=== PATIENT | female | born 1960 | race Caucasian/White ===

== ENCOUNTER 2016-12-03 16:08 | Emergency (ER) | payer OTHER ==
[~2016-12-03] VITALS: Ht 157.5 cm; Wt 80.0 kg
[~2016-12-03 16:08] MED LIST: AGG PO; ALBUAER19 INH; BUSP15TA70 PO; CTP/1 PO; ESCI1TAB10 PO; MECL1TAB42 PO; VERA240C2 PO
[2016-12-03 16:12] VITALS: TEMP 36.9; Ht 157.5 cm; Wt 80.0 kg
[2016-12-03] MEDS ORDERED: TOPI100T45 PO (16:17)
--- NOTE | 2016-12-03 17:05 | DIAGNOSTIC IMAGING REPORT ---
CT OF THE HEAD WITHOUT CONTRAST CLINICAL HISTORY: Fall. Head injury. COMPARISON STUDY: Head CT March 20, 2016 and MRI the brain March 21, 2016 TECHNIQUE: Helical axial images of the head were obtained without IV contrast. Automated exposure control was utilized for the study. FINDINGS: No acute intracranial hemorrhage, midline shift or mass effect is present. Ventricular system is normal. The basilar cisterns are patent. There are no extra-axial collections. Farris-white differentiation is maintained. There is no calvarial fracture. Visualized portions of the sinuses and mastoid air cells are clear. IMPRESSION: 1. No acute intracranial findings. 2. No calvarial fracture. Electronically signed by: Maksim Delcid M.D. 12/03/2016 5:03 PM Dictated Date/Time: 12/03/2016 5:01 PM
--- NOTE | 2016-12-03 17:07 | DIAGNOSTIC IMAGING REPORT ---
CT SCAN OF THE CERVICAL SPINE CLINICAL HISTORY: Fall. Trauma. COMPARISON STUDY: CT angiogram the neck dated 11/22/2015. TECHNIQUE: CT scan of the cervical spine is performed from the skull base to the upper thoracic spine. Images are reviewed in the axial, sagittal, and coronal planes. IV contrast was not administered for this examination. CT DOSE: 1077.21 mGy.cm FINDINGS: Skeletal structures: The skeletal structures are osteopenic. There is no evidence of fracture or subluxation involving the cervical spine. Vertebral body height and alignment are maintained. There is straightening of cervical lordosis. There is incomplete bony fusion of the posterior ring of C1, likely on a congenital basis. The odontoid process and lateral masses are intact. The atlantoaxial articulation is preserved. The spinous processes appear intact. Minimal anterior wedging of T1 is unchanged from previous. Intervertebral discs: The disc spaces are well maintained. Central canal: Widely patent. Soft tissues: The prevertebral and paraspinous soft tissues are within normal limits. Calvarium: The visualized calvarium at the skull base appears intact. Brain parenchyma: Partially visualized brain parenchyma the skull base is within normal limits. Sinuses and mastoids: Trace mucosal thickening is seen in the maxillary antra. The mastoid air cells are well pneumatized. Lung apices: Clear as visualized. IMPRESSION: There is no evidence of fracture or subluxation involving the cervical spine. Electronically signed by: Stuart Castellanos M.D. 12/03/2016 5:05 PM Dictated Date/Time: 12/03/2016 5:02 PM
--- NOTE | 2016-12-03 17:16 | DIAGNOSTIC IMAGING REPORT ---
PELVIS 1 OR 2 VIEW ROUTINE CLINICAL HISTORY: Fall. Right hip pain. COMPARISON STUDY: No previous studies for comparison. FINDINGS: The sacroiliac joints and symphysis pubis are intact. There is no acute fracture within the pelvis or hips. There is mixed lucency and sclerosis within both femoral heads, left greater than right. There may be left femoral head collapse. IMPRESSION: 1. No acute fracture within the pelvis or hips. 2. Mixed lucency and sclerosis within the bilateral femoral heads, left greater than right. The findings raise the possibility of avascular necrosis with collapse on the left. Electronically signed by: Maksim Delcid M.D. 12/03/2016 5:15 PM Dictated Date/Time: 12/03/2016 5:14 PM
--- NOTE | 2016-12-03 17:17 | DIAGNOSTIC IMAGING REPORT ---
RIGHT HIP UNILATERAL 2 VIEWS CLINICAL HISTORY: Right hip pain following fall. COMPARISON: None FINDINGS: Alignment of the right hip is anatomic. There is no acute fracture. Mixed lucency and sclerosis within the femoral head is better depicted on the pelvis radiograph. IMPRESSION: 1. No acute fracture or dislocation of the right hip. 2. Possible avascular necrosis of the right femoral head. Electronically signed by: Maksim Delcid M.D. 12/03/2016 5:15 PM Dictated Date/Time: 12/03/2016 5:15 PM
--- NOTE | 2016-12-03 17:18 | DIAGNOSTIC IMAGING REPORT ---
L-SPINE MIN 4 VIEWS ROUTINE CLINICAL HISTORY: Back pain following fall. COMPARISON: None FINDINGS: Alignment of the lumbar spine is anatomic. Vertebral body heights are maintained. There is no acute fracture or suspicious lesion. Sacroiliac joints are intact. There is mild multilevel degenerative disc disease and facet arthrosis within the lumbar spine. IMPRESSION: 1. No acute lumbar spine fracture or subluxation identified. 2. Mild multilevel degenerative disc disease and facet arthrosis of the lumbar spine. Electronically signed by: Maksim Delcid M.D. 12/03/2016 5:17 PM Dictated Date/Time: 12/03/2016 5:16 PM
[2016-12-03 17:55] VITALS: BP 138/79; PULSE 72; O2SAT 95
--- NOTE | 2016-12-03 20:18 | EMERGENCY ROOM VISIT NOTE ---
History Report prepared by Apoorva: Izabella Franco Under the Supervision of: Dr. Stephon Laureano M.D. 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 The patient notes that she slipped on ice while bringing her dog inside and fell on her backside, hitting the back of her head. She did not lose consciousness. Since then she has had some pain to the back of her head and some right hip soreness. About 2 hours ago, she became lightheaded and nauseated. She took an antiemetic which improved her nausea some. She has been able to walk normally. She ate lunch prior to the fall. Currently, she has some pressure in the front of her head, but she notes that she has had a headache since waking up and does not think it is from hitting her head. Denies vomiting, unilateral weakness/ numbness, or other complaints. 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 A total of 10 systems reviewed and were otherwise negative. Past Medical & Surgical Medical Problems: (1) Asthma (2) Bronchitis (3) History of blood clots (4) Hypertension (5) Pneumonia (6) possible cva (7) TIA or cervicle radiculopathy Surgical Problems: (1) H/O: hysterectomy Family History Cancer Diabetes mellitus Heart disease Hypertension Social History Smoking Status: Never Smoker Alcohol Use: none Drug Use: none Marital Status: Housing Status: lives with family Occupation Status: employed Current/Historical Medications Scheduled Buspirone Hcl (Buspar), 15 MG PO BID Cyanocobalamin (Vitamin B-12), 1,000 MCG PO DAILY Escitalopram Oxalate (Lexapro), 20 MG PO DAILY Topiramate (Topamax), 100 MG PO TID Scheduled PRN Albuterol (Ventolin Hfa), 2 PUFFS INH QID PRN for SOB/Wheezing Meclizine HCl (Meclizine HCl), 25 MG PO TID PRN for Dizziness or Vertigo Naproxen (Naproxen), 500 MG PO BID PRN for Pain Naratriptan Hcl (Amerge), 2.5 MG PO UD PRN for Migraine Omeprazole (Prilosec), 20 MG PO BID PRN for Acid Reflux Ondansetron Hcl (Zofran), 4 MG PO Q8H PRN for Nausea Tizanidine Hcl (Zanaflex), 2 MG PO BID PRN for Migraine Allergies Coded Allergies: Sulfa Antibiotics (Verified Allergy, Unknown, Unknown, 11/22/15) Physical Exam Vital Signs Date Time Temp Pulse Resp B/P Pulse Ox O2 Delivery O2 Flow Rate FiO2 12/03/16 17:55 72 19 138/79 95 12/03/16 16:12 36.9 81 18 141/91 96 Room Air Physical Exam Constitutional: Vital signs reviewed. Eyes: Pupils are equal round reactive to light. Conjunctiva are noninjected. ENT: Pharynx is clear without erythema or exudate. Mucous membranes are moist. Mild tenderness of the cervical spine without step off or deformity. Neck supple without meningeal signs. Respiratory: Clear to auscultation bilaterally. Breath sounds are equal bilaterally. Cardiovascular: Regular rate and rhythm. No rubs or gallops. GI: Soft, nondistended and nontender. Bowel sounds are present. Musculoskeletal: No peripheral edema. mild tenderness of the lumbosacral spine without step off or deformity. Mild tenderness of the right hip without deformity. Integumentary: No cyanosis. Neurological: The patient is awake and alert. Cranial nerves II-XII are intact. Motor is 5 out of 5 all extremities. Sensation is intact to light touch all extremities. Normal speech. No pronator drift. Psychiatric: Normal affect. Medical Decision & Procedures ER Provider Diagnostic Interpretation: X-ray results as stated below per interpretation by me and the radiologist. Other radiology results as stated below per my review and the radiologist's interpretation: PELVIS 1 OR 2 VIEW ROUTINE CLINICAL HISTORY: Fall. Right hip pain. COMPARISON STUDY: No previous studies for comparison. FINDINGS: The sacroiliac joints and symphysis pubis are intact. There is no acute fracture within the pelvis or hips. There is mixed lucency and sclerosis within both femoral heads, left greater than right. There may be left femoral head collapse. IMPRESSION: 1. No acute fracture within the pelvis or hips. 2. Mixed lucency and sclerosis within the bilateral femoral heads, left greater than right. The findings raise the possibility of avascular necrosis with collapse on the left. Electronically signed by: Maksim Delcid M.D. 12/03/2016 5:15 PM Dictated Date/Time: 12/03/2016 5:14 PM L-SPINE MIN 4 VIEWS ROUTINE CLINICAL HISTORY: Back pain following fall. COMPARISON: None FINDINGS: Alignment of the lumbar spine is anatomic. Vertebral body heights are maintained. There is no acute fracture or suspicious lesion. Sacroiliac joints are intact. There is mild multilevel degenerative disc disease and facet arthrosis within the lumbar spine. IMPRESSION: 1. No acute lumbar spine fracture or subluxation identified. 2. Mild multilevel degenerative disc disease and facet arthrosis of the lumbar spine. Electronically signed by: Maksim Delcid M.D. 12/03/2016 5:17 PM Dictated Date/Time: 12/03/2016 5:16 PM RIGHT HIP UNILATERAL 2 VIEWS CLINICAL HISTORY: Right hip pain following fall. COMPARISON: None FINDINGS: Alignment of the right hip is anatomic. There is no acute fracture. Mixed lucency and sclerosis within the femoral head is better depicted on the pelvis radiograph. IMPRESSION: 1. No acute fracture or dislocation of the right hip. 2. Possible avascular necrosis of the right femoral head. Electronically signed by: Maksim Delcid M.D. 12/03/2016 5:15 PM Dictated Date/Time: 12/03/2016 5:[address] OF THE HEAD WITHOUT CONTRAST CLINICAL HISTORY: Fall. Head injury. COMPARISON STUDY: Head CT March 20, 2016 and MRI the brain March 21, 2016 TECHNIQUE: Helical axial images of the head were obtained without IV contrast. Automated exposure control was utilized for the study. FINDINGS: No acute intracranial hemorrhage, midline shift or mass effect is present. Ventricular system is normal. The basilar cisterns are patent. There are no extra-axial collections. Farris-white differentiation is maintained. There is no calvarial fracture. Visualized portions of the sinuses and mastoid air cells are clear. IMPRESSION: 1. No acute intracranial findings. 2. No calvarial fracture. Electronically signed by: Maksim Delcid M.D. 12/03/2016 5:03 PM Dictated Date/Time: 12/03/2016 5:[address] SCAN OF THE CERVICAL SPINE CLINICAL HISTORY: Fall. Trauma. COMPARISON STUDY: CT angiogram the neck dated 11/22/2015. TECHNIQUE: CT scan of the cervical spine is performed from the skull base to the upper thoracic spine. Images are reviewed in the axial, sagittal, and coronal planes. IV contrast was not administered for this examination. CT DOSE: 1077.21 mGy.cm FINDINGS: Skeletal structures: The skeletal structures are osteopenic. There is no evidence of fracture or subluxation involving the cervical spine. Vertebral body height and alignment are maintained. There is straightening of cervical lordosis. There is incomplete bony fusion of the posterior ring of C1, likely on a congenital basis. The odontoid process and lateral masses are intact. The atlantoaxial articulation is preserved. The spinous processes appear intact. Minimal anterior wedging of T1 is unchanged from previous. Intervertebral discs: The disc spaces are well maintained. Central canal: Widely patent. Soft tissues: The prevertebral and paraspinous soft tissues are within normal limits. Calvarium: The visualized calvarium at the skull base appears intact. Brain parenchyma: Partially visualized brain parenchyma the skull base is within normal limits. Sinuses and mastoids: Trace mucosal thickening is seen in the maxillary antra. The mastoid air cells are well pneumatized. Lung apices: Clear as visualized. IMPRESSION: There is no evidence of fracture or subluxation involving the cervical spine. Electronically signed by: Stuart Castellanos M.D. 12/03/2016 5:05 PM Dictated Date/Time: 12/03/2016 5:02 PM ED Course 1620: The patient was evaluated in room D6. A complete history and physical exam was performed. 1736: I reassessed the patient and discussed test results with her, including the pelvis x-ray. She does not have any pain in her left hip and will follow up with her doctor regarding those findings. She will be discharged home. Medical Decision This is a 56-year-old female who presents status post injuries after a fall. Differential diagnosis includes intracranial hemorrhage, contrecoup injury, concussion, contusion, hip fracture. I did perform a limited focused review of portions of the patient's old chart on the electronic medical record. She was admitted for a complex migraine in March of last year because he had a facial droop and slurred speech. MRI of the brain was normal. I did evaluate the patient as noted above. The patient is presenting with injuries after a mechanical fall. She complains of dizziness and a headache. She also has neck pain, back pain and right hip and lower back pain. I did order and personally review the patient's x-rays as described above. There are no acute fractures. She does have degenerative changes to her lower back. There are some changes consistent with avascular necrosis of the bilateral hips , left greater than right. The patient does not have any pain to her left hip. I did recommend that she talk to her doctor about these findings for further evaluation. I did order a CT of the head and cervical spine. I did review the images myself as well as the radiology report as described above. There is no evidence of bleed or cervical injury. I did discuss the test results with the patient. I did review head injury precautions with her. She was discharged in good condition. Impression Primary Impression: Acute head injury Additional Impressions: Fall Back pain Right hip pain Scribe Attestation The scribe's documentation has been prepared under my direct and personally reviewed by me in its entirety. I confirm that the note above accurately reflects all work, treatment, procedures, and medical decision making performed by me. Departure Information Dispostion Home / Self-Care Referrals Betsy Werner C.R.N.P. (PCP) Patient Instructions ED Head Injury Closed, My [facility] Additional Instructions You have been examined and treated today on an emergency basis only. This is not a substitute for, or an effort to provide, complete comprehensive medical care. It is impossible to recognize and treat all injuries or illnesses in a single emergency department visit. It is therefore important that you follow up closely with your physician. Call as soon as possible for an appointment. Return for worsening symptoms or if you develop numbness or weakness in your extremities, vomiting, or any other concerning symptoms. Talk to your doctor about the abnormal findings of your pelvic/hip x-rays. Problem Qualifiers Primary Impression: Acute head injury Encounter type: initial encounter Qualified Codes: S09.90XA - Unspecified injury of head, initial encounter Additional Impressions: Fall Encounter type: initial encounter Qualified Codes: W19.XXXA - Unspecified fall, initial encounter Back pain Back pain location: low back pain Chronicity: acute Back pain laterality: midline Sciatica presence: without sciatica Qualified Codes: M54.5 - Low back pain
[2016-12-03] MEDS ORDERED: NARA2.5T2 PO (22:20)
[2017-05-25] MEDS ORDERED: PRVHFAIN INH (16:44)
[2017-06-18] MEDS ORDERED: ONDA4TAB46 PO (13:05)
[2017-06-18] MEDS ORDERED: OMEP20CA9 PO (16:44)
[2017-06-18] MEDS ORDERED: ANT25 PO (16:44)
== END 2016-12-03 17:57 | disposition home or self-care (01) ==
LOC: C.EDB 16:10 → C.EDD 17:57
DX: S09.90XA Unspecified injury of head, initial encounter (principal); M54.9 Dorsalgia, unspecified; M25.551 Pain in right hip; W19.XXXA Unspecified fall, initial encounter; J45.909 Unspecified asthma, uncomplicated; I10 Essential (primary) hypertension; Z87.01 Personal history of pneumonia (recurrent); Z90.710 Acquired absence of both cervix and uterus

== ENCOUNTER → 2016-12-30 | Outpatient (CLI) | payer OTHER ==
[~2016-12-30] MED LIST changes: -AGG PO; -ALBUAER19 INH; +ANT25 PO; +ASPI81TA28 PO; +ATOR-22 PO; +BSP15 PO; -CTP/1 PO; +CYAN10005 PO; +ELET40TA PO; +LXP/20 PO; -MECL1TAB42 PO; +NAPR500T3 PO; +NARA2.5T2 PO; +NTRGSL/4 SL; +OMEP20CA9 PO; +ONDA4TAB46 PO; +PRVHFAIN INH; +RANI150T3 PO; +TIZA2CAP PO; +TIZA2TAB3 PO; +TOPI100T45 PO; +TPM100 PO; -VERA240C2 PO; +VNTHFA/IN INH
== END | disposition home or self-care (01) ==
LOC: C.MAMM 07:51
PROVIDERS: ATTEND Nurse Practitioner Adult Health
DX: R93.7 Abnormal findings on diagnostic imaging of other parts of musculoskeletal system (principal); M85.89 Other specified disorders of bone density and structure, multiple sites

== ENCOUNTER → 2016-12-31 | Outpatient (CLI) | payer OTHER ==
--- NOTE | 2016-12-31 13:57 | DIAGNOSTIC IMAGING REPORT ---
MRI THE LEFT HIP NO CONTRAST CLINICAL HISTORY: Left hip pain. Possible avascular necrosis. COMPARISON STUDY: AP pelvis dated 12/03/2016 FINDINGS: Incidental note is made of sigmoid diverticulosis. There is no pathologic adenopathy. There are no areas of marrow replacement to indicate metastatic disease. There are serpentine foci of diminished signal within the subcutaneous chondral portion of both femoral heads. The findings are consistent with bilateral avascular necrosis. There is no significant subarticular collapse. Within the contralateral right hip, there is edema within the obturator externus and quadratus femoris muscles.. IMPRESSION: 1. Bilateral avascular necrosis of the femoral heads 2. Edema within the right obturator externus and quadratus femoris muscles, suggestive of muscle strain. Electronically signed by: Ronald Lacy M.D. 12/31/2016 1:56 PM Dictated Date/Time: 12/31/2016 1:48 PM
== END | disposition home or self-care (01) ==
LOC: C.MRIBC 12:50
PROVIDERS: ATTEND Orthopaedic Surgery
DX: M25.552 Pain in left hip (principal); M87.051 Idiopathic aseptic necrosis of right femur; M87.052 Idiopathic aseptic necrosis of left femur; R60.0 Localized edema

== ENCOUNTER → 2017-02-08 | Outpatient (CLI) | payer OTHER ==
[2017-02-08 09:21] LABS: BASO % 0.7 %; BASO ABS # 0.05 K/uL (0-0.2); COMPLETE YES; HEMATOCRIT 41.4 % (37-47); IG% 0.1 %; LYMPH % 30.1 %; LYMPH ABS # 2.22 K/uL (1.2-3.4); MEAN CELL VOLUME 86.4 fL (80-100); MEAN CORPUSCULAR HEMOGLOBIN 28.8 pg (25-34); MEAN CORPUSCULAR HGB CONC 33.3 g/dl (32-36); MEAN PLATELET VOLUME 9.9 fL (7.4-10.4); MONO % 7.3 %; NEUT % 59.8 %; PLATELET COUNT 228 K/uL (130-400); RED BLOOD COUNT 4.79 M/uL (4.2-5.4); WHITE BLOOD COUNT 7.38 K/uL (4.8-10.8)
[2017-02-08 09:28] LABS: ALT/SGPT 18 U/L (12-78); BLOOD UREA NITROGEN 15 mg/dl (7-18); BUN/CREATININE RATIO 16.6 (10-20); CALCIUM 8.7 mg/dl (8.5-10.1); CARBON DIOXIDE 25 mmol/L (21-32); CHLORIDE 113 mmol/L (98-107); CHOLESTEROL 212 mg/dl (0-200); CREATININE 0.88 mg/dl (0.60-1.20); GLUCOSE 86 mg/dl (70-99); POTASSIUM 3.7 mmol/L (3.5-5.1); SODIUM 145 mmol/L (136-145); TRIGLYCERIDES 170 mg/dl (0-150); VERY LOW DENSITY LIPOPROT CALC 34 mg/dl
[2017-02-08 09:31] LABS: ALB/GLOB RATIO 1.2 (0.9-2); ALKALINE PHOSPHATASE 82 U/L (45-117); AST/SGOT 13 U/L (15-37); CHOLESTEROL/HDL RATIO 4.9; HDL CHOLESTEROL 43 mg/dl; LDL CHOLESTEROL CALCULATED 135 mg/dl
== END | disposition home or self-care (01) ==
LOC: C.LAB 07:59
PROVIDERS: ATTEND Nurse Practitioner Adult Health
DX: E78.5 Hyperlipidemia, unspecified (principal); I10 Essential (primary) hypertension; R93.7 Abnormal findings on diagnostic imaging of other parts of musculoskeletal system

== ENCOUNTER 2017-05-25 21:53 | Observation (INO) | payer OTHER ==
[~2017-05-25] VITALS: Ht 160 cm; Wt 78.4 kg
[~2017-05-25 21:53] MED LIST changes: -ANT25 PO; -ASPI81TA28 PO; -ATOR-22 PO; -BSP15 PO; -CYAN10005 PO; -ELET40TA PO; -LXP/20 PO; -NAPR500T3 PO; -NTRGSL/4 SL; -OMEP20CA9 PO; -ONDA4TAB46 PO; -RANI150T3 PO; -TIZA2CAP PO; -TIZA2TAB3 PO; -TPM100 PO; -VNTHFA/IN INH
[2017-05-25] MEDS ORDERED: ASPIRIN 81 MG CHEW PO STA (22:21)
[2017-05-25] MEDS ORDERED: SODIUM CHLORIDE 0.9% 500ML 500 ML IV STA (22:21)
[2017-05-25] MEDS ORDERED: NITROGLYCERIN 0.4 MG SL PER TAB CHARGE SL PRN (22:30)
[2017-05-25 22:43] LABS: BASO % 0.6 %; BASO ABS # 0.05 K/uL (0-0.2); COMPLETE YES; EOS % 3.4 %; HEMATOCRIT 42.4 % (37-47); IG% 0.2 %; LYMPH % 34.7 %; LYMPH ABS # 2.94 K/uL (1.2-3.4); MEAN CORPUSCULAR HEMOGLOBIN 29.5 pg (25-34); MEAN CORPUSCULAR HGB CONC 33.5 g/dl (32-36); MEAN PLATELET VOLUME 10.2 fL (7.4-10.4); MONO % 5.9 %; NEUT % 55.2 %; PLATELET COUNT 214 K/uL (130-400); RED BLOOD COUNT 4.82 M/uL (4.2-5.4); WHITE BLOOD COUNT 8.47 K/uL (4.8-10.8)
[2017-05-25 23:06] LABS: BLOOD UREA NITROGEN 16 mg/dl (7-18); BUN/CREATININE RATIO 14.7 (10-20); CALCIUM 8.6 mg/dl (8.5-10.1); CARBON DIOXIDE 24 mmol/L (21-32); CHLORIDE 113 mmol/L (98-107); GLUCOSE 108 mg/dl (70-99); POTASSIUM 3.8 mmol/L (3.5-5.1); SODIUM 145 mmol/L (136-145)
[2017-05-25 23:11] LABS: CKMB/CK RATIO 1.2 (0-3.0)
[2017-05-26] VITALS (9 sets, daily range): BP systolic 108–156; BP diastolic 76–106; PULSE 61–77; TEMP 36.5–36.8; O2SAT 96–99; Ht 160 cm; Wt 78.4 kg
--- NOTE | 2017-05-26 00:34 | EMERGENCY ROOM VISIT NOTE ---
History Report prepared by Apoorva: An Burns Under the Supervision of: Wilfredo TrippO. First contact with patient: 22:09 Chief Complaint: RESPIRATORY PROBLEMS Stated Complaint: WEAK SPELLS THIS WK, CHEST DISCOMFORT TODAY Nursing Triage Summary: triage note pt reports having a tightness in her chest area, relating this to breathing, with periods of weakness for a few days pt used inhaler approx at 1800 with some relief History of Present Illness The patient is a 56 year old female who presents to the Emergency Room with complaints of persistent chest tightness starting about an hour ago. About a week ago, she started having intermittent generalized weakness. She also had multiple episodes of her complicated migraine. She had right sided facial weakness and eye movements which were consistent with her usual complicated migraine symptoms. Her most recent episode of complicated migraine occurred about 6 hours ago. She currently denies any facial weakness. About an hour ago, the patient was resting when she started having chest tightness. The patient also had some shortness of breath. She used her inhaler without relief. She notes being nauseated as well. The patient currently continues to complain of the chest tightness. She currently denies any weakness or numbness. She denies arm or jaw pain, coughing up blood, vomiting, diarrhea, swelling of calves, or any other complaints. She does not smoke cigarettes. The patient has a history of high cholesterol. She is no longer on hypertension medications. She denies any personal history of myocardial infarction, diabetes, or trouble with aorta. She has a family history of myocardial infarction. Source of History: patient Onset: about an hour ago Position: chest Quality: other (chest tightness) Timing: other (persistent) Modifying Factors (Relieving): other (inhaler without relief) Associated Symptoms: + SOB, + nausea, No vomiting, No diarrhea Review of Systems See HPI for pertinent positives & negatives. A total of 10 systems reviewed and were otherwise negative. Past Medical & Surgical Medical Problems: (1) Asthma (2) Bronchitis (3) History of blood clots (4) Hypertension (5) Pneumonia (6) possible cva (7) TIA or cervicle radiculopathy Surgical Problems: (1) H/O: hysterectomy Family History Cancer Diabetes mellitus Heart disease Hypertension Social History Smoking Status: Never Smoker Alcohol Use: none Drug Use: none Marital Status: Housing Status: lives with family Occupation Status: employed Current/Historical Medications Scheduled Buspirone HCl (Buspirone HCl), 5 MG PO HS Cyanocobalamin (Vitamin B-12), 1,000 MCG PO DAILY Escitalopram Oxalate (Escitalopram Oxalate), 20 MG PO DAILY Tizanidine (Zanaflex), 1 MG PO QAM Tizanidine Hcl (Zanaflex), 2 MG PO HS Topiramate (Topiramate), 100 MG PO BID Scheduled PRN Albuterol (Ventolin Hfa), 2 PUFFS INH QID PRN for SOB/Wheezing Eletriptan Hydrobromide (Relpax), 40 MG PO UD PRN for Migraine Meclizine HCl (Meclizine HCl), 25 MG PO TID PRN for Dizziness or Vertigo Naproxen (Naproxen), 500 MG PO BID PRN for Pain Omeprazole (Prilosec), 20 MG PO BID PRN for Acid Reflux Ondansetron Hcl (Zofran), 4 MG PO Q8H PRN for Nausea Allergies Coded Allergies: Sulfa Antibiotics (Verified Allergy, Unknown, Unknown, 11/22/15) Physical Exam Vital Signs Date Time Temp Pulse Resp B/P (MAP) Pulse Ox O2 Delivery O2 Flow Rate FiO2 05/26/17 00:16 66 18 118/87 97 05/26/17 00:01 118/87 05/25/17 23:54 71 15 98 05/25/17 23:49 68 18 141/93 97 05/25/17 22:53 80 22 97 05/25/17 22:24 73 05/25/17 22:23 70 23 98 05/25/17 22:22 97 Room Air 05/25/17 22:18 97 Room Air 05/25/17 22:05 92 Room Air 05/25/17 22:00 36.6 74 18 151/99 92 Room Air Physical Exam GENERAL: Sitting up in bed, disheveled, no acute distress, nontoxic. EYE EXAM: normal conjunctiva, PERRL and EOM's intact OROPHARYNX: no exudate, no erythema, lips, buccal mucosa, and tongue normal and mucous membranes are moist NECK: supple, no nuchal rigidity, no adenopathy, non-tender LUNGS: Clear to auscultation. Normal chest wall mechanics HEART: no murmurs, S1 normal and S2 normal ABDOMEN: abdomen soft, non-tender, normo-active bowel sounds, no masses, no rebound or guarding. BACK: Back is symmetrical on inspection and there is no deformity, no midline tenderness, no CVA tenderness. SKIN: no rashes and no bruising UPPER EXTREMITIES: upper extremities are grossly normal. LOWER EXTREMITIES: No pitting edema. NEURO EXAM: Normal sensorium, cranial nerves II-XII intact, normal speech, no weakness of arms, no weakness of legs. No drift. Finger to nose intact. Gross sensation intact. Medical Decision & Procedures ER Provider Diagnostic Interpretation: X-ray results as per my interpretation: Portable AP upright one view: No focal infiltrates, no pneumothorax. CT:Per my review, radiologist interpretation. CT HEAD Comparison MRI head 03/21/16 Impression: No acute intracranial hemorrhage, territorial infarct, mass, midline shift, or extra-axial fluid collection. Incidentals: Normal blackman-while differentiation Normal cisterns, sulci and ventricles for the patient's age. Mild atherosclerosis of the skull base. Clear sinuses. Radiologist: Arley Schmitz MD Laboratory Results 05/25/17 22:34 Red Blood Count 4.82, Mean Corpuscular Volume 88.0, Mean Corpuscular Hemoglobin 29.5, Mean Corpuscular Hemoglobin Concent 33.5, Mean Platelet Volume 10.2, Neutrophils (%) (Auto) 55.2, Lymphocytes (%) (Auto) 34.7, Monocytes (%) (Auto) 5.9, Eosinophils (%) (Auto) 3.4, Basophils (%) (Auto) 0.6, Neutrophils # (Auto) 4.67, Lymphocytes # (Auto) 2.94, Monocytes # (Auto) 0.50, Eosinophils # (Auto) 0.29, Basophils # (Auto) 0.05 05/25/17 22:34 Test 05/25/17 22:34 White Blood Count 8.47 K/uL (4.8-10.8) Red Blood Count 4.82 M/uL (4.2-5.4) Hemoglobin 14.2 g/dL (12.0-16.0) Hematocrit 42.4 % (37-47) Mean Corpuscular Volume 88.0 fL (80-100) Mean Corpuscular Hemoglobin 29.5 pg (25-34) Mean Corpuscular Hemoglobin Concent 33.5 g/dl (32-36) Platelet Count 214 K/uL (130-400) Mean Platelet Volume 10.2 fL (7.4-10.4) Neutrophils (%) (Auto) 55.2 % Lymphocytes (%) (Auto) 34.7 % Monocytes (%) (Auto) 5.9 % Eosinophils (%) (Auto) 3.4 % Basophils (%) (Auto) 0.6 % Neutrophils # (Auto) 4.67 K/uL (1.4-6.5) Lymphocytes # (Auto) 2.94 K/uL (1.2-3.4) Monocytes # (Auto) 0.50 K/uL (0.11-0.59) Eosinophils # (Auto) 0.29 K/uL (0-0.5) Basophils # (Auto) 0.05 K/uL (0-0.2) RDW Standard Deviation 43.6 fL (36.4-46.3) RDW Coefficient of Variation 13.5 % (11.5-14.5) Immature Granulocyte % (Auto) 0.2 % Immature Granulocyte # (Auto) 0.02 K/uL (0.00-0.02) Anion Gap 8.0 mmol/L (3-11) Est Creatinine Clear Calc Drug Dose 54.8 ml/min Estimated GFR () 64.5 Estimated GFR (Non- 55.7 BUN/Creatinine Ratio 14.7 (10-20) Calcium Level 8.6 mg/dl (8.5-10.1) Total Creatine Kinase 81 U/L (26-192) Creatine Kinase MB 1.0 ng/ml (0.5-3.6) Creatine Kinase MB Ratio 1.2 (0-3.0) Troponin I < 0.015 ng/ml (0-0.045) Laboratory results per my review. Medications Administered Medications (Trade) Dose Ordered Sig/Leandro Route Start Time Stop Time Status Last Admin Dose Admin Sodium Chloride 500 ml @ 999 mls/hr Q31M STAT IV 05/25/17 22:21 05/25/17 22:51 DC 05/25/17 22:44 999 MLS/HR Aspirin (Aspirin Chew) 324 mg NOW STAT PO 05/25/17 22:21 05/25/17 22:23 DC 05/25/17 22:45 324 MG Nitroglycerin (Nitrostat Tab) 0.4 mg Q5M PRN SL 05/25/17 22:30 06/24/17 22:29 05/25/17 22:45 0.4 MG ECG Indication: other (Chest tightness) Rate (beats per minute): 72 Rhythm: sinus rhythm Findings: T-wave inversion (High lateral), other (rightward axis) Comparison ECG Date: March 20, 2016 Change: High lateral T wave inversion is new when compared to March 20, 2016. ED Course ED COURSE: Vital signs were reviewed and showed hypertensive The patients medical record was reviewed The above diagnostic studies were performed and reviewed. ED treatments and interventions as stated above. 2209: The patient was evaluated in room B10. A complete history and physical examination was performed. 2221: Aspirin 324 mg PO, Sodium Chloride 500 ml @ 999 mls/hr IV 2230: Nitroglycerin 0.4 mg SL 2332: Upon reevaluation, the patient is feeling better. Her chest pain and associated shortness of breath has completely resolved with Nitro. I discussed my findings with the patient and she understands and agrees with the treatment plan. Based on the patients age, coexisting illnesses, exam and lab findings the decision to treat as an inpatient was made. The patient remained stable while under my care. The patient will be evaluated for further management. 2351: I discussed the patient's case with Dr. Sherwin Davis, resident with [facility]ist [facility]. Medical Decision Medication Reconciliation: I attest that I have personally reviewed the patient' s current medication list. Blood pressure screening: Patient was found to have an elevated blood pressure and was referred to the hospitalist for recheck and further treatment. Differential diagnoses includes but is not limited to acute coronary syndrome, myocardial infarction, pericarditis, pulmonary embolus, aortic dissection, pneumonia, pneumothorax, musculoskeletal, shingles, esophageal. Patient is a 56-year-old female who presents the ER for chest pain associated with shortness of breath. She also complains of intermittent right-sided facial numbness/droop over the past 3-4 days. She notes that when she gets a bad migraine she does get this. She's been admitted for this 2 times in the past. CT head was unremarkable. CBC and BMP along with troponin was negative. Patient was given aspirin and nitroglycerin. Pain and shortness of breath resolved with nitroglycerin. EKG shows flipped T waves in the high lateral leads which is new. Patient was updated regards to findings was admitted to internal medicine for further workup. Consults Time Called: [phone] Consulting Physician: Dr. Sherwin Davis, resident with [facility] Returned Call: [phone] I discussed the patient's case with Dr. Sherwin Davis, resident with [facility]. Impression Primary Impression: Precordial chest pain Scribe Attestation The scribe's documentation has been prepared under my direction and personally reviewed by me in its entirety. I confirm that the note above accurately reflects all work, treatment, procedures, and medical decision making performed by me. Departure Information Dispostion Being Evaluated By Hospitalist Referrals Betsy Werner C.R.N.P. (PCP) Patient Instructions My [facility]
--- NOTE | 2017-05-26 00:45 | History and Physical ---
History & Physical Date & Time of Service: May 26, 2017 at 00:11 Chief Complaint: Weak Spells This Wk, Chest Discomfort Today Primary Care Physician: Betsy Werner C.R.N.P. History of Present Illness Mrs Miranda is a 56 year old female with history of complex migraine, HTN and hyperlipidemia who presents to the ER with chest tightness. She reports this started around 6pm today and she took an inhaler which helped initially. However around 9pm it became worse again, severity 05/19. She currently denies any chest tightness but is left with a mild dull pain worse on palpation. The chest tightness was substernal, no radiation, associated with shortness of breath, nausea and diaphoresis. Exacerbated by inspiration. Chest tightness resolved with aspirin and nitro use in the ER. This started after having one of her complex migraines which started at 10am today with generalized weakness and then right sided facial droop around 3-4pm (lasted for 1 hour), no change in vision/speech/hearing or limb sensory deficit. She has never had an episode of chest tightness with her migraine, She has chronic problems with complex migraines causing headache, generalized weakness/fatigue and right sided facial weakness. This week she has had an increased frequency of these symptoms than her normal (once on Friday, Friday and Today). They have been unusual this week only in the frequency and lack of a headache to go with her facial droop. Past Medical/Surgical History Medical Problems: (1) Asthma Status: Chronic (2) Bronchitis Status: Chronic (3) History of blood clots Status: Resolved (4) Hypertension Status: Chronic Surgical Problems: (1) H/O: hysterectomy Status: Resolved Family History Cancer Diabetes mellitus Heart disease Hypertension Social History Smoking Status: Never Smoker Drug Use: none Marital Status: Occupational Status: employed Immunizations History of Influenza Vaccine: No History of Tetanus Vaccine?: Yes Tetanus Immunization Date: Nov 10, 1998 History of Pneumococcal: No History of Hepatitis B Vaccine: No Multi-Drug Resistant Organisms History of MDRO: No Allergies Coded Allergies: Sulfa Antibiotics (Verified Allergy, Unknown, Unknown, 11/22/15) Home Medications Scheduled Buspirone HCl (Buspirone HCl), 5 MG PO HS Cyanocobalamin (Vitamin B-12), 1,000 MCG PO DAILY Escitalopram Oxalate (Escitalopram Oxalate), 20 MG PO DAILY Tizanidine (Zanaflex), 1 MG PO QAM Tizanidine Hcl (Zanaflex), 2 MG PO HS Topiramate (Topiramate), 100 MG PO BID Scheduled PRN Albuterol (Ventolin Hfa), 2 PUFFS INH QID PRN for SOB/Wheezing Eletriptan Hydrobromide (Relpax), 40 MG PO UD PRN for Migraine Meclizine HCl (Meclizine HCl), 25 MG PO TID PRN for Dizziness or Vertigo Naproxen (Naproxen), 500 MG PO BID PRN for Pain Omeprazole (Prilosec), 20 MG PO BID PRN for Acid Reflux Ondansetron Hcl (Zofran), 4 MG PO Q8H PRN for Nausea Review of Systems Constitutional: + weakness (see HPI), + fatigue, No fever, No chills Eyes: No worsening of vision, No eye pain, No redness, No discharge, No diplopia Respiratory: + cough (chronic cough since Spring which is being treated with allergy medications but she reports this is not helping. ) Cardiovascular: + chest pain, No orthopnea, No PND, No edema, No claudication, No palpitations Abdomen: + nausea (see HPI), No pain, No vomiting, No diarrhea, No constipation , No GI bleeding Musculoskeletal: + joint pain (arthiritis back pain), No muscle pain Genitourinary - Female: No dysuria, No urinary frequency, No urinary urgency, No urinary incontinence, No urinary retention Neurologic: No memory loss, No paralysis, No numbness/tingling, No vertigo Endocrine: + fatigue (see HPI) Hematologic / Lymphatic: No abnormal bleeding/bruising, No clotting problems Integumentary: No rash, No itch Physical Exam Vital Signs Date Time Temp Pulse Resp B/P (MAP) Pulse Ox O2 Delivery O2 Flow Rate FiO2 05/25/17 23:49 68 18 141/93 97 05/25/17 22:53 80 22 97 05/25/17 22:24 73 05/25/17 22:23 70 23 98 05/25/17 22:22 97 Room Air 05/25/17 22:18 97 Room Air 05/25/17 22:05 92 Room Air 05/25/17 22:00 36.6 74 18 151/99 92 Room Air General Appearance: WD/WN, no apparent distress, + obese Head: normocephalic, atraumatic Eyes: normal inspection, PERRL, EOMI ENT: normal ENT inspection, pharynx normal (uvula central) Neck: supple, no adenopathy, no JVD, no carotid bruits, trachea midline Respiratory/Chest: chest non-tender, lungs clear, normal breath sounds, no respiratory distress, no accessory muscle use Cardiovascular: regular rate, rhythm, no murmur, normal peripheral pulses Abdomen/GI: normal bowel sounds, non tender, soft Back: normal inspection (no central spinal tenderness), no CVA tenderness Extremities/Musculoskelatal: no calf tenderness, normal capillary refill, non- tender Neurologic/Psych: caramel maker II-XII nml as tested, no motor/sensory deficits, alert, normal mood/affect, oriented x 3 Skin: normal color, warm/dry, no rash Diagnostics Laboratory Results Results Past 24 Hours Test 05/25/17 22:34 Range/Units White Blood Count 8.47 4.8-10.8 K/uL Red Blood Count 4.82 4.2-5.4 M/uL Hemoglobin 14.2 12.0-16.0 g/dL Hematocrit 42.4 37-47 % Mean Corpuscular Volume 88.0 80-100 fL Mean Corpuscular Hemoglobin 29.5 25-34 pg Mean Corpuscular Hemoglobin Concent 33.5 32-36 g/dl Platelet Count 214 130-400 K/uL Mean Platelet Volume 10.2 7.4-10.4 fL Neutrophils (%) (Auto) 55.2 % Lymphocytes (%) (Auto) 34.7 % Monocytes (%) (Auto) 5.9 % Eosinophils (%) (Auto) 3.4 % Basophils (%) (Auto) 0.6 % Neutrophils # (Auto) 4.67 1.4-6.5 K/uL Lymphocytes # (Auto) 2.94 1.2-3.4 K/uL Monocytes # (Auto) 0.50 0.11-0.59 K/uL Eosinophils # (Auto) 0.29 0-0.5 K/uL Basophils # (Auto) 0.05 0-0.2 K/uL RDW Standard Deviation 43.6 36.4-46.3 fL RDW Coefficient of Variation 13.5 11.5-14.5 % Immature Granulocyte % (Auto) 0.2 % Immature Granulocyte # (Auto) 0.02 0.00-0.02 K/uL Sodium Level 145 136-145 mmol/L Potassium Level 3.8 3.5-5.1 mmol/L Chloride Level 113 98-107 mmol/L Carbon Dioxide Level 24 21-32 mmol/L Anion Gap 8.0 3-11 mmol/L Blood Urea Nitrogen 16 7-18 mg/dl Creatinine 1.10 0.60-1.20 mg/dl Est Creatinine Clear Calc Drug Dose 54.8 ml/min Estimated GFR () 64.5 Estimated GFR (Non- 55.7 BUN/Creatinine Ratio 14.7 10-20 Random Glucose 108 70-99 mg/dl Calcium Level 8.6 8.5-10.1 mg/dl Total Creatine Kinase 81 26-192 U/L Creatine Kinase MB 1.0 0.5-3.6 ng/ml Creatine Kinase MB Ratio 1.2 0-3.0 Troponin I < 0.015 0-0.045 ng/ml Diagnostic Radiology CT head - no acute pathology CXR normal EKG 72 bpm New right axis deviation (new from EKG in March 2016) TWI lead II (new previously lead III TWI in March 2016 EKG) Impression Assessment and Plan 56 year old female with HTN, hyperlipidemia, Hx superficial DVT and complex migraines presents with chest tightness. Chest pain rule out CA + PE - atypical chest pain: given right axis deviation, Hx of superficial DVT and pleuritic nature will get a d-dimer to assess for PE. Differential includes but not exclusive of asthma exacerbation, NSTE-ACS, GERD, esophageal spasm. ASA and nitro given in the ER with relief of her symptoms. - D-dimer for PE - Serial troponin, stress test tomorrow afternoon if 12 hour troponin at 9am negative. - EKG in morning. - albuterol PRN for shortness of breath as this gave her some relief previously - Ranitidine for possible GERD - observation status in telemetry Anxiety - Continue buspar, lexapro and tizanidine Migraine prophylaxis - Continue topamax VTE Prophylaxis - heparin 5000 units SQ Q8H Code - initially she wished to be not for resuscitation but on further discussion with her son she changed her mind to full resuscitation Disposition - observation status in telemetry Attending Addendum: I have physically seen and examined this patient, have supervised the medical residents activities, and agree with the H&P as noted above with the following exceptions: NONE The patient is awake, well-developed and adequately nourished, alert and oriented 3, normocephalic and atraumatic, lying in bed and in no acute distress. HEENT--PERRL, EOMI, mucous membranes and oropharynx dry. Neck--supple, no JVD or bruits, thyroid normal, trachea midline, no adenopathy. Heart--normal S1 and S2, no extra beats, no murmurs, rubs or gallops. Lungs--clear bilaterally with good air movement, no respiratory distress, no accessory muscle use. Abdomen--normal bowel sounds and soft, nontender and nondistended, no hernias or masses, no organomegaly. Extremities--no cyanosis, clubbing or edema. There are good distal pulses b/l. Dermatologic--normal skin turgor, normal color, warm and dry, no abnormal lymph nodes. Left heel with eczematous changes. Neurologic--cranial nerves II through XII grossly intact, motor and sensory examination normal. Rheumatologic--normal range of motion, nontender, muscles and joints. Psychiatric--normal affect. Assessment and Plan: 1. Precordial chest pain/new T-wave inversions in leads 1 and aVL suggestive of possible ischemia compared to previous EKG in 2016--The patient will be admitted to telemetry for serial cardiac enzymes, cardiac rhythm monitoring and a 2-D echocardiogram with Dopplers. If cardiac workup is negative, she will need a stress echocardiogram prior to discharge. Discussed healthier lifestyle with diet and in particular exercise changes. Start aspirin 81 mg by mouth daily, with first dose of 324 mg already given in the ED. Check a fasting lipid profile and hemoglobin A1c. Repeat EKG in the morning. She is young, has never had cardiac issues in the past or any significant illnesses. I therefore advised her that she should be a full code. Level of Care Telemetry Advanced Directives Existing Advance Directive: No Existing Living Will: No Existing Power of Tariff Compiler: No Resuscitation Status FULL RESUSCITATION VTE Prophylaxis Given or contraindicated: Unfractionated heparin SQ Additional Copies To Betsy Werner C.[email or web address] Resident Tracking Resident Involvement: Resident Care Provided Care Provided: Adult ED
[2017-05-26] MEDS ORDERED: ACETAMINOPHEN 325 MG TAB PO PRN ×2 (01:00→02:15)
[2017-05-26] MEDS ORDERED: NITROGLYCERIN 0.4 MG SL PER TAB CHARGE SL PRN ×2 (01:00→02:15)
[2017-05-26] MEDS ORDERED: ONDANSETRON INJ 2 MG/ML 2 ML VIAL IV PRN ×2 (01:00→02:15)
[2017-05-26] MEDS ORDERED: ONDANSETRON 4 MG TAB PO PRN (01:00)
[2017-05-26] MEDS ORDERED: MECLIZINE HCL 25 MG TAB PO PRN (01:00)
[2017-05-26] MEDS ORDERED: ALBUTEROL HFA 8 GM INHALER INH PRN (01:00)
[2017-05-26] MEDS ORDERED: RANITIDINE HCL 150 MG TAB PO STA (01:23)
[2017-05-26 01:31] LABS: PARTIAL THROMBOPLASTIN RATIO 0.9; PROTHROMBIN TIME (PATIENT) 10.5 SECONDS (9.0-12.0)
[2017-05-26] MEDS ORDERED: IV FLUIDS COMPLETED PRN (02:00)
[2017-05-26] MEDS ORDERED: OPTIRAY 320 IV PRN (02:15)
[2017-05-26] MEDS: HEPARIN SOD 5000 UNIT/0.5 ML CARP SQ SCH ×2 (05:52→13:57)
[2017-05-26] MEDS ORDERED: HEPARIN SOD 5000 UNIT/0.5 ML CARP SQ SCH (06:00)
--- NOTE | 2017-05-26 06:36 | DIAGNOSTIC IMAGING REPORT ---
CT HEAD WITHOUT CONTRAST (CT) CLINICAL HISTORY: Recurrent facial droop right-sided COMPARISON STUDY: 12/03/2016 TECHNIQUE: Axial CT of the brain is performed from the vertex to the skull base. IV contrast was not administered for this examination. CT DOSE: 537.48 mGy.cm FINDINGS: No intra or extra-axial mass lesions are visualized. There is no CT evidence of acute cortical infarction. There is no evidence of midline shift. There is no acute hemorrhage. No calvarial fractures are visualized. There are minimal white matter hypodensities likely on a small vessel basis. There is no evidence of pathologic ventricular dilatation. There is no evidence of acute sinusitis IMPRESSION: No acute intracranial findings Electronically signed by: Ronald Lacy M.D. 05/26/2017 6:34 AM Dictated Date/Time: 05/26/2017 6:33 AM
--- NOTE | 2017-05-26 06:53 | DIAGNOSTIC IMAGING REPORT ---
CHEST ONE VIEW PORTABLE CLINICAL HISTORY: Atypical chest pain COMPARISON STUDY: 11/22/2015 FINDINGS: The cardiac and mediastinal contours are normal. There is no evidence of focal pulmonary consolidation. There is no evidence of failure. No pleural effusions are visualized.[ There are minor left basilar atelectatic changes. IMPRESSION: No active disease in the chest. Electronically signed by: Ronald Lacy M.D. 05/26/2017 6:51 AM Dictated Date/Time: 05/26/2017 6:51 AM
--- NOTE | 2017-05-26 07:10 | DIAGNOSTIC IMAGING REPORT ---
(CHEST FOR PE) ANGIO WITH CT DOSE: 435.66 mGy.cm HISTORY: 56-year-old female presents with acute chest pain TECHNIQUE: Multiple CTA images of the chest were obtained after the intravenous administration of 96 ml Optiray 320. Coronal and sagittal MIPS were obtained from the axial data set and were submitted for review. COMPARISON: Portable chest radiograph of same day. FINDINGS: CTA: There is adequate opacification of the pulmonary arteries to the level of the subsegmental branches without convincing evidence of acute pulmonary embolism. The thoracic aorta is normal in course and caliber. Heart size is normal. CT CHEST: Thyroid is homogeneous. There is mildly enlarged subcarinal lymph node, 1.7 x 1.1 cm without additional adenopathy by CT size criteria, likely reactive. There are trace bilateral pleural effusions. There is minimal mosaic attenuation in a multilobar distribution bilaterally suggesting air trapping. No pneumothorax or focal airspace consolidation is identified. There is mild bronchial wall thickening bilaterally. There is a peripherally calcified centrally cystic appearing lesion of the mid spleen, 2.2 x 2.6 x 2.5 cm in AP, transverse and craniocaudal dimensions respectively. Remaining imaged upper abdominal structures are unremarkable. Soft tissues are within normal limits. The bones are intact. IMPRESSION: 1. No acute aortic pathology or evidence of pulmonary thromboembolic disease. 2. Mild bilateral bronchial wall thickening with multilobar distribution of mosaic attenuation suggests bronchitis with air trapping. 3. Trace pleural effusions. 4. Mildly enlarged subcarinal adenopathy, likely reactive. 5. Peripherally calcified cystic lesion of the mid spleen, 2.6 cm is likely benign. The above report was generated using voice recognition software. It may contain grammatical, syntax or spelling errors. Electronically signed by: Issa Andrews M.D. 05/26/2017 7:08 AM Dictated Date/Time: 05/26/2017 7:00 AM
[2017-05-26] MEDS ORDERED: ESCITALOPRAM OXALATE 20 MG TAB PO SCH (09:00)
[2017-05-26] MEDS ORDERED: ASPIRIN 81 MG ECTAB PO SCH ×2 (09:00)
[2017-05-26] MEDS ORDERED: TOPIRAMATE 100 MG TAB PO SCH (09:00)
[2017-05-26] MEDS ORDERED: RANITIDINE HCL 150 MG TAB PO SCH (09:00)
[2017-05-26] MEDS ORDERED: CYANOCOBALAMIN 500 MCG TAB (VIT B-12) PO SCH (09:00)
[2017-05-26] MEDS ORDERED: TiZANIdine 1 MG TAB PO SCH ×2 (09:00)
--- NOTE | 2017-05-26 12:59 | Cardiology Consultation ---
Cardiology Consultation Date of Consultation: May 26, 2017. Requesting Physician: Susan Contreras evaluation today including: conversation w/ patient, physical exam, chart review, lab review, review of studies, review of inpatient medication list, conversation w/ attending History of Present Illness Patient is a 56-year-old woman without a known history of cardiac disease who began experiencing symptoms of chest discomfort yesterday afternoon. Her symptoms initially involved a sense of weakness and fatigue. She was quite tired and some difficulty with ambulation due to weakness in her legs. Shortly thereafter she developed what she described as substernal chest achiness. She also describes this as a sense of tightness. She does not describe it as pain. Based on the nature of her symptoms the patient used an inhaler at home which made the symptoms worse. She cannot describe significant breathing difficulty. Based on the persistent and increasing severe nature of her symptoms she went to [facility] for additional evaluation. At the hospital the patient was administered aspirin and nitroglycerin with some improvement in her symptoms. Her symptoms however returned over the course of the evening and did seem to improve with additional nitroglycerin. At the time of this interview the patient continues to have an element of chest achiness. She does not seem to have a pleuritic component. There is a mild positional component and she feels slightly better when sitting upright. If she presses on her chest she is sore and this seems to reproduce her symptoms. She cannot describe symptoms of this nature previously. In general the patient is an active individual is able to perform routine activity without limitation. More strenuous activity however is limited primarily by fatigue. She also has some element of hip discomfort but claims to be more limited by fatigue and tiredness. She denies any exertional chest pain. She denies any limiting dyspnea. She has not had any sense of palpitations or rapid heartbeats. She has occasional dizziness which is more likely vertigo. This can last for days and often responds to meclizine. She has not suffered a syncopal episode. Past Medical/Surgical History Complex migraines TIAs, previously on anticoagulation Hypertension Hyperlipidemia Vertigo Arthritis Varicose veins Past surgical history None Family History Cancer Diabetes mellitus Heart disease Hypertension Significant for diabetes. Patient claims to have a history of coronary disease in the family but does not appear to be premature coronary disease. Social History Smoking Status: Never Smoker History of Alcohol Use: No Review of Systems Constitutional: + see HPI Respiratory: + see HPI, + cough Cardiac: + see HPI Abdomen: + see HPI Female : + see HPI Neurologic: + see HPI Heme: + see HPI Endo: + see HPI Skin: + see HPI Patient claims to sleep well. She does not have the urinate frequently at nighttime. She denies any significant swelling in her lower extremities. She has not had any sick contacts recently. She has not traveled recently. She denies any change in her bowel or bladder habits. She does report having significant stomach upset with prior aspirin use. All Other Systems: Reviewed and Negative Allergies Coded Allergies: Sulfa Antibiotics (Verified Allergy, Unknown, Unknown, 11/22/15) Medications Current Inpatient Medications Medications (Trade) Dose Ordered Sig/Leandro Route Start Time Stop Time Status Last Admin Dose Admin Albuterol (Ventolin Hfa Inhaler) 2 puffs QID PRN INH 05/26/17 01:00 06/25/17 00:59 Buspirone HCl (BusPAR TAB) 5 mg HS PO 05/26/17 21:00 06/25/17 20:59 Cyanocobalamin (Vitamin B-12 Tab) 1,000 mcg DAILY PO 05/26/17 09:00 06/25/17 08:59 05/26/17 07:51 1,000 MCG Escitalopram Oxalate (Lexapro Tab) 20 mg DAILY PO 05/26/17 09:00 06/25/17 08:59 05/26/17 07:50 20 MG Meclizine HCl (Antivert Tab) 25 mg TID PRN PO 05/26/17 01:00 06/25/17 00:59 Ondansetron HCl (Zofran Tab) 4 mg Q8H PRN PO 05/26/17 01:00 06/25/17 00:59 Tizanidine HCl (Zanaflex Tab) 2 mg HS PO 05/26/17 21:00 06/25/17 20:59 Topiramate (Topamax Tab) 100 mg BID PO 05/26/17 09:00 06/25/17 08:59 05/26/17 07:50 100 MG Ranitidine HCl (zANTac TAB) 150 mg BID PO 05/26/17 09:00 06/25/17 08:59 05/26/17 07:50 150 MG Aspirin (Ecotrin Tab) 81 mg QAM PO 05/26/17 09:00 06/25/17 08:59 05/26/17 07:50 81 MG Miscellaneous (Iv Fluids Completed) 1 ea PRN PRN N/A 05/26/17 02:00 05/26/18 01:59 Heparin Sodium (Porcine) (Heparin Sq 5000 Unit/0.5ml) 5,000 unit Q8 SQ 05/26/17 06:00 06/25/17 05:59 05/26/17 05:52 5,000 UNIT Acetaminophen (Tylenol Tab) 650 mg Q4H PRN PO 05/26/17 02:15 06/25/17 02:14 Nitroglycerin (Nitrostat Tab) 0.4 mg UD PRN SL 05/26/17 02:15 06/25/17 02:14 05/26/17 03:15 0.4 MG Ondansetron HCl (Zofran Inj) 4 mg Q6H PRN IV 05/26/17 02:15 06/25/17 02:14 Ioversol (Optiray 320) 100 ml UD PRN IV 05/26/17 02:15 05/30/17 02:14 Tizanidine HCl (Zanaflex Tab) 1 mg QAM PO 05/26/17 09:00 06/25/17 08:59 05/26/17 07:51 1 MG Physical Exam Vital Signs Past 12 Hours Date Time Temp Pulse Resp B/P (MAP) Pulse Ox O2 Delivery O2 Flow Rate FiO2 05/26/17 12:05 Room Air 05/26/17 11:38 36.5 61 17 108/81 (90) 97 Room Air 05/26/17 08:10 99 Room Air 05/26/17 07:20 36.7 64 17 118/91 (100) 99 Room Air 05/26/17 04:57 125/84 (98) 05/26/17 04:00 99 Room Air 05/26/17 03:36 36.5 77 18 153/97 (115) 99 Room Air 05/26/17 01:50 36.6 72 18 156/106 96 Room Air 05/26/17 01:32 36.6 68 20 146/91 97 05/26/17 01:21 68 20 97 05/26/17 01:02 146/91 05/26/17 00:51 69 16 99 She is alert and oriented x3. Mood affect appear normal. She answered all questions appropriately. HEENT: Sclerae are anicteric. Pupils are equal and reactive to light and accommodation. Extraocular movements were intact. Neuro: Cranial nerves intact Neck: Examination of the submandibular region did not reveal any significant lymphadenopathy. Carotids are palpable bilaterally and free of bruits on auscultation. There was no evidence of jugular venous distention. The thyroid was not enlarged. Lungs: Lungs are clear to auscultation bilaterally. There are no rales wheezes or rhonchi. She has normal respiratory effort without use of accessory muscles. There is normal pulmonary excursion. Cardiac: The rhythm was regular. S1 and S2 were normal. There are no murmurs on examination. The PMI was not markedly displaced on palpation. Abdomen: The abdomen was soft and nontender. Extremities: Patient has bilateral radial pulses that are equal in intensity. There is no evidence cyanosis or clubbing. There was no evidence of significant peripheral edema bilaterally. Skin: There are no rashes noted on examination today. Data Laboratory Results: Last 24 Hours Test 05/25/17 22:34 05/26/17 05:19 05/26/17 12:43 White Blood Count 8.47 K/uL Red Blood Count 4.82 M/uL Hemoglobin 14.2 g/dL Hematocrit 42.4 % Mean Corpuscular Volume 88.0 fL Mean Corpuscular Hemoglobin 29.5 pg Mean Corpuscular Hemoglobin Concent 33.5 g/dl Platelet Count 214 K/uL Mean Platelet Volume 10.2 fL Neutrophils (%) (Auto) 55.2 % Lymphocytes (%) (Auto) 34.7 % Monocytes (%) (Auto) 5.9 % Eosinophils (%) (Auto) 3.4 % Basophils (%) (Auto) 0.6 % Neutrophils # (Auto) 4.67 K/uL Lymphocytes # (Auto) 2.94 K/uL Monocytes # (Auto) 0.50 K/uL Eosinophils # (Auto) 0.29 K/uL Basophils # (Auto) 0.05 K/uL RDW Standard Deviation 43.6 fL RDW Coefficient of Variation 13.5 % Immature Granulocyte % (Auto) 0.2 % Immature Granulocyte # (Auto) 0.02 K/uL Prothrombin Time 10.5 SECONDS Prothromb Time International Ratio 1.0 Activated Partial Thromboplast Time 24.5 SECONDS Partial Thromboplastin Ratio 0.9 D-Dimer 890 ug/L FEU Sodium Level 145 mmol/L Potassium Level 3.8 mmol/L Chloride Level 113 mmol/L Carbon Dioxide Level 24 mmol/L Anion Gap 8.0 mmol/L Blood Urea Nitrogen 16 mg/dl Creatinine 1.10 mg/dl Est Creatinine Clear Calc Drug Dose 54.8 ml/min Estimated GFR () 64.5 Estimated GFR (Non- 55.7 BUN/Creatinine Ratio 14.7 Random Glucose 108 mg/dl Calcium Level 8.6 mg/dl Total Creatine Kinase 81 U/L Creatine Kinase MB 1.0 ng/ml Creatine Kinase MB Ratio 1.2 Troponin I < 0.015 ng/ml < 0.015 ng/ml Imaging: I reviewed the results of her CT PE protocol. No evidence of pulmonary embolus. No pericardial effusion. EKG: Normal sinus rhythm. Likely limb lead reversal. Awaiting 2nd EKG. Telemetry reviewed: No arrhythmia I reviewed the results of the patient's echocardiogram performed in 2016. This revealed preserved LV systolic function without evidence of a PFO. No significant valvular disease. Assessment & Plan Chest pain: Of the character of the patient's symptoms is concerning for ischemia, the extended duration without elevation in cardiac biomarkers precludes cardiac ischemia as the diagnosis. I believe the changes seen on her EKG or related to limb lead reversal. I have ordered a 2nd EKG for clarification. While there was some improvement in her symptoms with nitroglycerin use, once again there are no other objective findings consistent with a coronary syndrome. Her chest pain is also reproducible. This may be related to esophageal or gastric disease. She does have a history of discomfort with aspirin use in the past. She is on standard dose of omeprazole but may benefit from more intensive acid suppression. Alternatively, there may be an element of bronchitis or even pericarditis. Some of her symptoms are positional. There was no effusion on her CT scan. Would seem reasonable to repeat an echocardiogram to compare to 2016. Her echocardiogram was once again normal, I would not advocate any stress testing at this time. She is feeling better and I think if her echocardiogram is normal she could be discharged with routine follow-up for resolution of her symptoms. Abnormal EKG: Likely limb lead reversal. Repeat EKG pending.
--- NOTE | 2017-05-26 13:49 | DIAGNOSTIC IMAGING REPORT ---
LEFT VENOUS DOPP LOWER EXT UNILAT CLINICAL HISTORY: left calf tenderness warmth pain. Edema. TECHNIQUE: Venous Doppler. COMPARISON STUDY: 08/22/2013 FINDINGS: Normal study IMPRESSION: Normal study The above report was generated using voice recognition software. It may contain grammatical, syntax or spelling errors. Electronically signed by: Herminio Carlin M.D. 05/26/2017 1:48 PM Dictated Date/Time: 05/26/2017 1:47 PM
--- NOTE | 2017-05-26 14:01 | ECHOCARDIOGRAM REPORT ---
*NOTICE TO RECEIVING DEMOCRAT AGENCY This information is strictly Confidential and protected under [place] law. [place] law prohibits you from making any further disclosure of this information unless further disclosure is expressly permitted by the written consent of the person to whom it pertains or is authorized by law. A general authorization for the release of medical or other information is not sufficient for this purpose. Hospital accepts no responsibility if the information is made available to any other person, INCLUDING THE PATIENT. Interpretation Summary * Name: DONTA MIGUEL Study Date: 05/26/2017 12:43 PM BP: 108/81 mmHg * Patient Location: .2E\S\E203\S\1 HR: 61 * : 1960 (M/d/yy) Gender: Female Height: 63 in * Age: 56 yrs Ethnicity: CA Weight: 172 lb * Ordering Physician: Christopher. Tillman MD * Performed By: Sydney Barillas * * Reason For Study: CHEST PAIN * BSA: 1.8 m2 * -- Conclusions -- * 1. Normal LV size. Mild concentric LVH. * 2. Normal LV systolic function. LVEF 60-65%. No regional wall motion abnormalities. * 3. RV not well visualized. Grossly normal size, borderline reduced function. * 4. No significant valvular pathology. * 5. Normal estimated RA and PA pressures. * 6. Compared with prior study on 11/23/2015: No significant changes. Procedure Details * A complete two-dimensional transthoracic echocardiogram was performed (2D, M-mode, Doppler and color flow Doppler). * A contrast injection of Definity was performed to improve assessment of LV function. * Contrast was injected into an intravenous site in the right arm. * One vial of Definity ultrasound contrast was diluted in normal saline to a total volume of 10 ml. A total of '2' ml of solution was administered during imaging. * Lot # [id number] of Definity utilized for procedure. * Expiration date 06/27. * The attending nurse who injected the contrast agent was LUKE RAHMAN RN. Left Ventricle * The left ventricle is grossly normal size. * There is mild concentric left ventricular hypertrophy. * Ejection Fraction = 60-65%. * No regional wall motion abnormalities noted. Right Ventricle * The right ventricle is not well visualized. * The right ventricle is grossly normal size. * The right ventricular systolic function is borderline reduced. Atria * The left atrial size is normal. * Right atrial size is normal. * No ASD detected; PFO is not assessed. Mitral Valve * The mitral valve is grossly normal. * There is no mitral valve stenosis. * Significant mitral regurgitation is absent. Tricuspid Valve * There is no tricuspid stenosis. * There is trace tricuspid regurgitation. * Right ventricular systolic pressure is normal. Aortic Valve * The aortic valve opens well. * The aortic valve is trileaflet. * No hemodynamically significant valvular aortic stenosis. * There is no significant aortic regurgitation. Pulmonic Valve * The pulmonary valve is inadequately visualized, but the Doppler data is adequate for interpretation. * There is no pulmonic valvular stenosis. * There is no significant pulmonary regurgitation. Great Vessels * The aortic root and proximal ascending aorta are normal sized. Pericardium/Pleural * There is no pericardial effusion. Great Vessels * Normal inferior vena cava size and collapsability with sniff indicates a normal right atrial pressure of 3 mmHg MMode 2D Measurements and Calculations IVSd 1.2 cm IVSs 1.6 cm LVIDd 3.3 cm LVIDs 2.2 cm LVPWd 1.1 cm LVPWs 1.5 cm IVS/LVPW 1.1 FS 32.6 % EDV(Teich) 44.5 ml ESV(Teich) 16.8 ml EF(Teich) 62.2 % EDV(cubed) 36.3 ml ESV(cubed) 11.1 ml EF(cubed) 69.3 % % IVS thick 33.5 % % LVPW thick 36.7 % LV mass(C)d 114.8 grams LV mass(C)dI 63.3 grams/m\S\2 LV mass(C)s 114.8 grams LV mass(C)sI 63.3 grams/m\S\2 SV(Teich) 27.7 ml SI(Teich) 15.3 ml/m\S\2 SV(cubed) 25.2 ml SI(cubed) 13.9 ml/m\S\2 ACS 1.7 cm asc Aorta Diam 3.4 cm LVOT diam 1.8 cm LVOT area 2.5 cm\S\2 LVAd ap4 26.5 cm\S\2 LVLd ap4 7.3 cm EDV(MOD-sp4) 82.0 ml EDV(sp4-el) 81.7 ml LVAs ap4 14.3 cm\S\2 LVLs ap4 5.7 cm ESV(MOD-sp4) 30.0 ml ESV(sp4-el) 30.7 ml EF(MOD-sp4) 63.4 % EF(sp4-el) 62.4 % LVAd ap2 28.9 cm\S\2 LVLd ap2 7.7 cm EDV(MOD-sp2) 90.7 ml EDV(sp2-el) 91.8 ml LVAs ap2 16.2 cm\S\2 LVLs ap2 6.3 cm ESV(MOD-sp2) 36.0 ml ESV(sp2-el) 35.7 ml EF(MOD-sp2) 60.4 % EF(sp2-el) 61.1 % LVLd %diff 5.2 % EDV(MOD-bp) 88.7 ml LVLs %diff 9.6 % ESV(MOD-bp) 34.5 ml EF(MOD-bp) 61.1 % SV(MOD-sp4) 52.0 ml SI(MOD-sp4) 28.7 ml/m\S\2 SV(MOD-sp2) 54.8 ml SI(MOD-sp2) 30.2 ml/m\S\2 SV(MOD-bp) 54.2 ml SI(MOD-bp) 29.9 ml/m\S\2 SV(sp4-el) 51.0 ml SI(sp4-el) 28.1 ml/m\S\2 SV(sp2-el) 56.1 ml SI(sp2-el) 30.9 ml/m\S\2 Doppler Measurements and Calculations MV E max rama 85.7 cm/sec MV A max rama 70.6 cm/sec MV E/A 1.2 MV dec time 0.20 sec Ao V2 max 123.8 cm/sec Ao max PG 6.1 mmHg Ao max PG (full) 1.9 mmHg ANAHY(V,A) 2.0 cm\S\2 ANAHY(V,D) 2.0 cm\S\2 LV V1 max PG 4.2 mmHg LV V1 max 103.0 cm/sec PA V2 max 65.8 cm/sec PA max PG 1.7 mmHg TR max rama 228.3 cm/sec
--- NOTE | 2017-05-26 16:18 | Discharge Instructions ---
Discharge Instructions Date of Service May 26, 2017. Admission Reason for Admission: Chest Pain,Rule Out Acute Myocardial Infarction Discharge Discharge Diagnosis / Problem: Precordial chest pain Discharge Goals Goal(s): Decrease discomfort Activity Recommendations Activity Limitations: resume your previous activity . Instructions / Follow-Up Instructions / Follow-Up You presented to [facility] due to chest tightness that occurred after the onset of your complex migraine. Your EKG showed an abnormality and therefore you were further investigated. The blood test that measured damage to your heart, troponin, was taken three times and each one was negative. Your CT scan of your head and chest were normal as well as your chest xray. The cardiologists also performed an echocardiogram to assess your heart's function and this was normal and unchanged from your previous echocardiogram. The abnormality seen on the EKG was likely due to limb lead reversal as all further tests were negative. Continue with your home medications and follow up with your PCP in one week concerning your increasing frequency of migraines. Current Hospital Diet Patient's current hospital diet: AHA Diet (Heart Healthy) Discharge Diet Recommended Diet: AHA Diet (Heart Healthy) Pending Studies Studies pending at discharge: no Medical Emergencies . Who to Call and When: Medical Emergencies: If at any time you feel your situation is an emergency, please call 911 immediately. . Non-Emergent Contact Non-Emergency issues call your: Primary Care Provider . . "Provider Documentation" section prepared by Abi Peterson. . VTE Core Measure Inpt VTE Proph given/why not?: Unfractionated heparin SQ Resident Tracking Resident Involvement: Resident Care Provided Care Provided: Adult Hospital Medicine
--- NOTE | 2017-05-26 18:20 | Discharge Summary ---
Discharge Summary Date of Service May 26, 2017. (Abi Peterson M.D.) Discharge Summary Admission Date: May 26, 2017 at 00:55 Discharge Date: May 26, 2017 Discharge Disposition: Home Principal Diagnosis: Precordial Chest Pain Immunizations: Have You Had Influenza Vaccine: No History of Tetanus Vaccine?: Yes Tetanus Immunization Date: Nov 10, 1998 History of Pneumococcal: No History of Hepatitis B Vaccine: No Consultations: Cardiology was consulted regarding Ms. Miranda's chest pain. (Abi Peterson M.D.) Medication Reconciliation Continued Medications: Albuterol (Ventolin Hfa) 60 Puffs/5400 Mcg Aers 2 PUFFS INH QID PRN for SOB/Wheezing Buspirone HCl (Buspirone HCl) 15 Mg Tab 5 MG PO HS Cyanocobalamin (Vitamin B-12) 1,000 Mcg Tab 1000 MCG PO DAILY, TAB Eletriptan Hydrobromide (Relpax) 40 Mg Tab 40 MG PO UD PRN for Migraine, #6 TAKE ONE TABLET AT ONSET OF MIGRAINE, MAY REPEAT AFTER 2 HOURS IF NEEDED Escitalopram Oxalate (Escitalopram Oxalate) 20 Mg Tab 20 MG PO DAILY Meclizine HCl (Meclizine HCl) 25 Mg Tab 25 MG PO TID PRN for Dizziness or Vertigo Naproxen (Naproxen) 500 Mg Tab 500 MG PO BID PRN for Pain Omeprazole (Prilosec) 20 Mg Cap 20 MG PO BID PRN for Acid Reflux Ondansetron Hcl (Zofran) 4 Mg Tab 4 MG PO Q8H PRN for Nausea, TAB Tizanidine (Zanaflex) 2 Mg Cap 1 MG PO QAM, CAP Tizanidine Hcl (Zanaflex) 2 Mg Tab 2 MG PO HS Topiramate (Topiramate) 100 Mg Tab 100 MG PO BID Discharge Exam Ms. Miranda reports that her chest tightness has resolved and that she is left with a residual chest discomfort that is exacerbated by pressing on her chest. She had one episode of chest tightness at 4:30AM this morning and reports that it was relieved by nitroglycerin. She denies SOB, nausea, or diaphoresis and otherwise feels well. Review of Systems: Constitutional: No fever, No chills, No sweats, No weight loss, No weakness Respiratory: + cough (ongoing, nonproductive), No sputum, No wheezing, No shortness of breath, No dyspnea on exertion, No dyspnea at rest, No hemoptysis Cardiovascular: + chest pain (chest discomfort), No orthopnea, No PND, No edema, No claudication Abdomen: No pain, No nausea, No vomiting Physical Exam: General Appearance: WD/WN, no apparent distress Neck: supple, no adenopathy Respiratory/Chest: lungs clear, normal breath sounds, no respiratory distress, no accessory muscle use, + pertinent finding (tender to palpation over left sternal area) Cardiovascular: regular rate, rhythm, no edema, no gallop, no JVD, no murmur , normal peripheral pulses Extremities: + calf tenderness (left calf tenderness on palpation) Neurologic/Psychiatric: no motor/sensory deficits, alert, normal mood/affect , normal reflexes, oriented x 3 Skin: normal color (Abi Peterson M.D.) Hospital Course Ms. Miranda is a 56 year old female who presented with substernal chest tightness on a background of complex migraines, hypertension and hyperlipidemia. Her symptoms began after her third complex migraine this week, where she had generalized weakness and a right sided facial droop. Her chest tightness started around 6pm yesterday and was relieved by the use of her albuterol inhaler. Unfortunately, after this initial relief, her chest tightness persisted and was rated as a 7/10 in severity. This was associated with shortness of breath, nausea, and diaphoresis, however she denied radiation of the pain. Upon presentation to the emergency department, her chest tightness resolved with aspirin and nitro. She was then left with residual chest discomfort which was worse on palpation. Her initial EKG showed abnormalities when compared with her prior EKG from March 2016, namely a new right axis deviation and T wave inversions in lead 2. Her serial troponin, chest xray, CT brain and CT angio were all negative, although her CT angio showed mild bronchial wall thickening consistent with bronchitis. Cardiology was consulted, and an ECHO was performed which showed no regional wall motion abnormalities and an EF of 60-65%. Her new onset EKG changes were likely due to limb lead reversal. Her left leg, however, was tender to palpation and warm to touch, and given her prior history of 2 superficial DVTs and elevated D-dimer, a duplex ultrasound was done. This was negative. Ms. Miranda was counselled to continue her home medications and to follow up with her PCP in the next week with regards to her residual chest tightness and increasing frequency of migraines. Total Time Spent: Less than 30 minutes This includes examination of the patient, discharge planning, medication reconciliation, and communication with other providers. (Abi Peterson M.D.) Discharge Instructions Please refer to the electronic Patient Visit Report (Discharge Instructions) for additional information. (Abi Peterson M.D.) Follow-Up Follow up with PCP in 1 week. (Abi Peterson M.D.) Additional Copies To Betsy Werner C.R.N.P. History Pt seen and examined w/ Dr. Peterson and agree with history and assessment as documented above. Pt resting comfortably in bed with mild chest pain which is reproducible by self w/ movement and direct pressure. Also complains of h/o GERD w/ recent flare without apparent triggering food or activity. Cardiology reviewed case and echocardiogram without significant objective concern for acute episode, but would recommend consideration of stress test once feeling better on discharge. Reports no fever, N/V, SOB, palpitations, lightheadedness. (Artemio Devine MD) General Appearance: WD/WN, no apparent distress, obese Respiratory: lungs clear, normal breath sounds, no respiratory distress, other (TTP over left peristernal chest wall which reproduces complaint) Cardiovascular: normal peripheral pulses, regular rate, rhythm, no edema, no murmur Gastrointestinal: normal bowel sounds, soft, no organomegaly, tenderness (mild epigastric) (Artemio Devine MD) Assessment/Plan 56 y/o female h/o HTN, HLD, DVT p/w chest discomfort Atypical chest pain - potential causes include costochondritis, GERD - continue ranitidine, avoid dietary triggers, follow with PCP for re-evaluation and potential stress testing in the future LLE calf pain - reproducible but without apparent trigger and w/ h/o DVT - US negative, encouraged rest, ice, elevation, tylenol for pain Anxiety - continue present regimen as outpatient Migraines - continue topiramate (Artemio Devine MD)
[2017-05-26] MEDS ORDERED: BusPIRone 15 MG TAB PO SCH (21:00)
[2017-06-18] MEDS ORDERED: ONDA4TAB46 PO (13:05)
[2017-06-18] MEDS ORDERED: OMEP20CA9 PO (16:44)
[2017-06-18] MEDS ORDERED: ANT25 PO (16:44)
== END 2017-05-26 16:38 | disposition home or self-care (01) ==
LOC: C.EDB 21:54 → C.2E 05-26 00:55 → ENRESERV 05-26 01:01
PROVIDERS: ADMIT Hospitalist; ATTEND Family Medicine
DX: R07.2 Precordial pain (principal); J45.909 Unspecified asthma, uncomplicated; I10 Essential (primary) hypertension; Z87.01 Personal history of pneumonia (recurrent); Z90.710 Acquired absence of both cervix and uterus; Z83.3 Family history of diabetes mellitus; Z82.49 Family history of ischemic heart disease and other diseases of the circulatory system; E78.5 Hyperlipidemia, unspecified; K21.9 Gastro-esophageal reflux disease without esophagitis; F41.9 Anxiety disorder, unspecified; G43.909 Migraine, unspecified, not intractable, without status migrainosus

== ENCOUNTER → 2017-06-05 | Outpatient (CLI) | payer OTHER ==
[~2017-06-05] MED LIST changes: +ANT25 PO; +ASPI81TA28 PO; +ATOR-22 PO; +BSP15 PO; -BUSP15TA70 PO; +CYAN10005 PO; +ELET40TA PO; -ESCI1TAB10 PO; +LXP/20 PO; +NAPR500T3 PO; -NARA2.5T2 PO; +NTRGSL/4 SL; +OMEP20CA9 PO; +ONDA4TAB46 PO; +RANI150T3 PO; +TIZA2CAP PO; +TIZA2TAB3 PO; -TOPI100T45 PO; +TPM100 PO; +VNTHFA/IN INH
--- NOTE | 2017-06-05 16:48 | DIAGNOSTIC IMAGING REPORT ---
CHEST 2 VIEWS ROUTINE HISTORY: 56 years-old Female [id number] COMPARISON: 05/25/2017 chest radiograph, chest CT 05/26/2017. TECHNIQUE: PA and lateral views of the chest FINDINGS: Cardiomediastinal and hilar silhouettes are within normal limits. There is no pneumothorax, pleural effusion or focal airspace consolidation. The bones are grossly intact. Mild degenerative changes involving the shoulders bilaterally. IMPRESSION: No acute cardiopulmonary process. The above report was generated using voice recognition software. It may contain grammatical, syntax or spelling errors. Electronically signed by: Issa Andrews M.D. 06/05/2017 4:47 PM Dictated Date/Time: 06/05/2017 4:45 PM
== END | disposition home or self-care (01) ==
LOC: C.RAD1850 16:18
PROVIDERS: ATTEND Nurse Practitioner Adult Health
DX: J40 Bronchitis, not specified as acute or chronic (principal)

== ENCOUNTER 2017-06-18 20:55 | Emergency (ER) | payer OTHER ==
[~2017-06-18] VITALS: Ht 157.5 cm; Wt 80.0 kg
[~2017-06-18 20:55] MED LIST changes: -ASPI81TA28 PO; -ATOR-22 PO; -BSP15 PO; -CYAN10005 PO; -ELET40TA PO; -LXP/20 PO; -NAPR500T3 PO; -NTRGSL/4 SL; -RANI150T3 PO; -TIZA2CAP PO; -TIZA2TAB3 PO; -TPM100 PO; -VNTHFA/IN INH
[2017-06-18 20:56] VITALS: Ht 157.5 cm; Wt 80.0 kg
[2017-06-18 21:11] VITALS: O2SAT 93
[2017-06-18 21:25] VITALS: TEMP 36.4
[2017-06-18] MEDS ORDERED: VNTHFA/IN INH (21:31)
[2017-06-18] MEDS ORDERED: ALUMINUM/MAGNESIUM SUSP 30 ML UDC PO STA (21:49)
[2017-06-18] MEDS ORDERED: LIDOCAINE HCL 2% VISC SOLN 20 ML UDC PO STA (21:49)
[2017-06-18 22:11] LABS: HEMATOCRIT 44.2 % (37-47); MEAN CELL VOLUME 89.3 fL (80-100); MEAN CORPUSCULAR HEMOGLOBIN 30.3 pg (25-34); MEAN CORPUSCULAR HGB CONC 33.9 g/dl (32-36); MEAN PLATELET VOLUME 10.5 fL (7.4-10.4); PLATELET COUNT 242 K/uL (130-400); RED BLOOD COUNT 4.95 M/uL (4.2-5.4); WHITE BLOOD COUNT 10.75 K/uL (4.8-10.8)
--- NOTE | 2017-06-18 22:11 | DIAGNOSTIC IMAGING REPORT ---
CHEST ONE VIEW PORTABLE CLINICAL HISTORY: Atypical chest pain COMPARISON STUDY: 06/05/2017 FINDINGS: The cardiac and mediastinal contours are normal. There is no evidence of focal pulmonary consolidation. There is no evidence of failure. No pleural effusions are visualized.[ IMPRESSION: No active disease in the chest. Electronically signed by: Ronald Lacy M.D. 06/18/2017 10:09 PM Dictated Date/Time: 06/18/2017 10:09 PM
[2017-06-18] MEDS ORDERED: CYAN10005 PO (22:20)
[2017-06-18] MEDS ORDERED: TIZA2TAB3 PO (22:20)
[2017-06-18] MEDS ORDERED: NAPR500T3 PO (22:20)
[2017-06-18 22:21] LABS: PROTHROMBIN TIME (PATIENT) 10.5 SECONDS (9.0-12.0)
[2017-06-18 22:28] LABS: BUN/CREATININE RATIO 14.7 (10-20); CREATININE 1.1 mg/dl (0.60-1.20); MAGNESIUM 2.3 mg/dl (1.8-2.4); POTASSIUM 3.3 mmol/L (3.5-5.1)
[2017-06-18] MEDS ORDERED: LXP/20 PO (22:34)
[2017-06-18] MEDS ORDERED: TIZA2CAP PO (22:34)
[2017-06-18] MEDS ORDERED: TPM100 PO (22:34)
[2017-06-18] MEDS ORDERED: ELET40TA PO (22:34)
[2017-06-18] MEDS ORDERED: BSP15 PO (22:34)
[2017-06-18 22:38] LABS: THYROID STIMULATING HORMONE 3.23 uIu/ml (0.300-4.500)
[2017-06-18] MEDS ORDERED: NITROGLYCERIN 0.4 MG SL PER TAB CHARGE SL STA (23:01)
[2017-06-18] MEDS ORDERED: POTASSIUM CHLORIDE 10 MEQ TABCR PO STA (23:23)
[2017-06-19] MEDS ORDERED: NITROGLYCERIN 0.4 MG SL PER TAB CHARGE ONE (01:20)
[2017-06-19] MEDS ORDERED: NITROGLYCERIN 0.4 MG SL PER TAB CHARGE SL PRN (01:45)
--- NOTE | 2017-06-19 02:37 | EMERGENCY ROOM VISIT NOTE ---
History First contact with patient: 21:29 Chief Complaint: CHEST PAIN Stated Complaint: CHEST PAIN, SOB, NAUSEA, UPPER BACK PAIN Nursing Triage Summary: patient with recurrent chest pain that goes to the back and up into the jaw. states she feels short of breath with it as well. History of Present Illness The patient is a 56 year old female who presents to the Emergency Room with complaints of chest pain that comes and goes in severity since 8 PM tonight. Pain currently 4 out of 10. Midsternal. Patient complains of some nausea. She was here last month with similar symptoms and had a normal echo. No recent stress test. No cardiac cath. No prior heart disease. Patient does have high blood pressure but denies diabetes and cholesterol. She does not smoke. Her mother had heart disease in her 70s. She does not have a vamp creaser. Patient followed up with her family care doctor and did not do anything about her chest pain admission last month. She was upset about this. Patient denies leg pain or swelling, dyspnea, abdominal pain, vomiting, diarrhea, numbness, recent illness, fever, chills, tingling. Patient states her symptoms are not exertional. Patient had macaroni and cheese and green beans for dinner. Patient states her family care doctor would not give her any nitroglycerin. She is very upset about this. Review of Systems See HPI for pertinent positives & negatives. A total of 10 systems reviewed and were otherwise negative. Past Medical/Surgical History Medical Problems: (1) Asthma (2) Bronchitis (3) Chest pain, rule out acute myocardial infarction (4) History of blood clots (5) Hypertension (6) Pneumonia (7) possible cva (8) TIA or cervicle radiculopathy Surgical Problems: (1) H/O: hysterectomy Family History Cancer Diabetes mellitus Heart disease Hypertension Social History Smoking Status: Never Smoker Alcohol Use: none Drug Use: none Marital Status: Housing Status: lives with family Occupation Status: employed Current/Historical Medications Scheduled Buspirone HCl (Buspirone HCl), 5 MG PO HS Cyanocobalamin (Vitamin B-12), 1,000 MCG PO DAILY Escitalopram Oxalate (Escitalopram Oxalate), 10 MG PO DAILY Tizanidine (Zanaflex), 1 MG PO QAM Tizanidine Hcl (Zanaflex), 2 MG PO HS Topiramate (Topiramate), 100 MG PO BID Scheduled PRN Albuterol Hfa (Ventolin Hfa), 2 PUFFS INH QID PRN for SOB/Wheezing Eletriptan Hydrobromide (Relpax), 40 MG PO UD PRN for Migraine Meclizine HCl (Meclizine HCl), 25 MG PO TID PRN for Dizziness or Vertigo Naproxen (Naproxen), 500 MG PO BID PRN for Pain Omeprazole (Prilosec), 20 MG PO BID PRN for Acid Reflux Ondansetron Hcl (Zofran), 4 MG PO Q8H PRN for Nausea Physical Exam Vital Signs Date Time Temp Pulse Resp B/P (MAP) Pulse Ox O2 Delivery O2 Flow Rate FiO2 06/19/17 01:49 95 06/19/17 01:40 95 18 144/91 94 Room Air 06/19/17 00:30 86 18 128/90 97 Room Air 06/18/17 23:15 94 18 121/91 96 Room Air 06/18/17 22:31 100 16 165/113 94 Room Air 06/18/17 21:30 95 06/18/17 21:25 36.4 99 22 129/90 98 Room Air 06/18/17 21:13 98 Room Air 06/18/17 21:11 93 Room Air 06/18/17 20:56 36.4 99 22 129/90 97 Room Air Physical Exam VITALS: Vitals are noted on the nurse's note and reviewed by myself. Vital signs stable. GENERAL: Pleasant anxious-appearing female, in no acute distress, nondiaphoretic , well-developed well-nourished. SKIN: The skin was without rashes, erythema, edema, or bruising. There is no tenting of the skin. Capillary reflex less than 2 seconds. HEAD: Normocephalic atraumatic. EARS: External auditory canals clear, tympanic membranes pearly blackman without erythema or effusion bilaterally. EYES: Pupils equal round and reactive to light and accommodation. Conjunctivae without injection, sclerae without icterus. Extraocular movements intact. NOSE: Patent, turbinates without inflammation or discharge. MOUTH: Mucous membranes moist. . Pharynx without erythema or exudate. Uvula midline. Airway patent. Tongue does not deviate. NECK: Supple without nuchal rigidity. No lymphadenopathy. No thyromegaly. Cervical spine is nontender. No JVD. HEART: Regular rate and rhythm without murmurs gallops or rubs. Chest tender to palpation midsternal reproducing symptoms. LUNGS: Clear to auscultation bilaterally without wheezes, rales or rhonchi. No dullness to percussion. No retractions or accessory muscle use. ABDOMEN: Positive bowel sounds x 4. Normal tympanic percussion. Soft, nontender, without masses or organomegaly. Mcallister sign negative. No guarding or rebound tenderness. MUSCULOSKELETAL: No muscle atrophy, erythema, or edema noted. NEURO: Patient was alert and oriented to person place and time. Normal sensation to light and sharp touch. No focal neurological deficits. Medical Decision & Procedures Laboratory Results 06/18/17 21:58 06/18/17 21:58 Test 06/18/17 21:58 06/19/17 02:08 Red Blood Count 4.95 M/uL (4.2-5.4) Mean Corpuscular Volume 89.3 fL (80-100) Mean Corpuscular Hemoglobin 30.3 pg (25-34) Mean Corpuscular Hemoglobin Concent 33.9 g/dl (32-36) RDW Standard Deviation 46.0 fL (36.4-46.3) RDW Coefficient of Variation 14.1 % (11.5-14.5) Mean Platelet Volume 10.5 fL (7.4-10.4) Prothrombin Time 10.5 SECONDS (9.0-12.0) Prothromb Time International Ratio 1.0 (0.9-1.1) Activated Partial Thromboplast Time 26.2 SECONDS (21.0-31.0) Partial Thromboplastin Ratio 1.0 Anion Gap 10.0 mmol/L (3-11) Est Creatinine Clear Calc Drug Dose 55.3 ml/min Estimated GFR () 64.5 Estimated GFR (Non- 55.7 BUN/Creatinine Ratio 14.7 (10-20) Calcium Level 9.0 mg/dl (8.5-10.1) Magnesium Level 2.3 mg/dl (1.8-2.4) Total Bilirubin 0.2 mg/dl (0.2-1) Aspartate Amino Transf (AST/SGOT) 15 U/L (15-37) Alanine Aminotransferase (ALT/SGPT) 26 U/L (12-78) Alkaline Phosphatase 68 U/L (45-117) Total Creatine Kinase 91 U/L (26-192) Creatine Kinase MB 1.8 ng/ml (0.5-3.6) Creatine Kinase MB Ratio 2.0 (0-3.0) Total Protein 7.1 gm/dl (6.4-8.2) Albumin 3.6 gm/dl (3.4-5.0) Globulin 3.5 gm/dl (2.5-4.0) Albumin/Globulin Ratio 1.0 (0.9-2) Thyroid Stimulating Hormone (TSH) 3.230 uIu/ml (0.300-4.500) Bedside Troponin I < 0.030 ng/ml (0-0.045) Medications Administered Medications (Trade) Dose Ordered Sig/Leandro Route Start Time Stop Time Status Last Admin Dose Admin Lidocaine HCl (Viscous Lidocaine 2% Soln) 10 ml NOW STAT PO 06/18/17 21:49 06/18/17 21:50 DC 06/18/17 21:59 10 ML Al Hydroxide/Mg Hydroxide (Maalox Susp) 30 ml NOW STAT PO 06/18/17 21:49 06/18/17 21:50 DC 06/18/17 21:59 30 ML Nitroglycerin (Nitrostat Tab) 0.4 mg NOW STAT SL 06/18/17 23:01 06/18/17 23:03 DC 06/18/17 23:16 0.4 MG Potassium Chloride (Klor-Con M10) 20 meq NOW STAT PO 06/18/17 23:23 06/18/17 23:24 DC 06/18/17 23:54 20 MEQ Nitroglycerin (Nitrostat Tab) 0.4 mg Q5M PRN SL 06/19/17 01:45 07/19/17 01:44 06/19/17 01:38 0.4 MG ED Course Prior records/ancillary studies reviewed. Triage Nursing notes reviewed. Additional history obtained from family The patient's history was concerning for chest pain. Differential diagnosis: Etiologies such as cardiac ischemia, aortic dissection, pulmonary embolism, pneumonia, pneumothorax, musculoskeletal, infections, pericarditis, myocarditis , esophageal rupture, gastrointestinal, as well as others were entertained. Physical examination: As above. ER treatment provided: GI cocktail, nitro On reassessment the patient felt better. Diagnostic interpretation by me: The electrocardiogram was negative for pathologic change. Normal sinus, normal intervals, no acute ST-T wave changes, rate of 90. Impression normal sinus rhythm interpreted by myself. Repeat EKG showed sinus tachycardia 1:15. The labs revealed 2 negative troponins that were greater than 2 hours apart. Hypokalemia and this is replaced orally Imaging studies: Chest x-ray as above Exam and history seem consistent with chest pain last likely to be cardiac in etiology. Patient had a normal echo last month. She had 2 negative troponins were greater than 4 hours apart. EKGs were unchanged. Nurse case management will help arrange cardiac follow-up for further evaluation and workup on a outpatient basis. Patient was advised to return to the ER immediately for chest pain, diaphoresis, dyspnea, worsening signs or symptoms or as needed. Patient and family were agreeable to treatment plan. Patient requested a few extra nitroglycerin and a short prescription was given to her. She was advised that if she uses 3 doses in a roll to come to the ER. By the evaluation outlined above emergent etiologies such as cardiac ischemia, aortic dissection, pulmonary embolism, pneumonia, pneumothorax, infections, pericarditis, myocarditis, gastrointestinal, as well as others were deemed relatively unlikely. The pt informed about the findings as listed above. All questions were answered and pleased with the treatment. Return instructions were outlined and the patient was discharged in stable condition. Outpatient prescription management: nitro Referral: The patient was referred back to cardiology and primary care physician for follow-up in 2 to 3 days for a recheck of the current condition. Case reviewed with my attending. Medical Decision As above Medication Reconcilliation Current Medication List: was personally reviewed by me Blood Pressure Screening Patient's blood pressure: Normal blood pressure Impression Primary Impression: Substernal precordial chest pain Departure Information Dispostion Home / Self-Care Condition GOOD Referrals Betsy Werner C.R.N.P. (PCP) [facility] Additional Instructions Nitroglycerin 0.4 mg sublingual: 1 tablet as needed for chest pain. Monitor your blood pressure. If you use more than 3 tablets within 15 minutes and are symptomatic come to the ER. Rest and drink plenty of fluids as tolerated. Continue current medications. Avoid strenuous activities and anything that worsens your pain. Resume normal activities once your symptoms resolve. Return to the ER immediately for worsening or persistent chest pain, abdominal pain, vomiting, fevers, chest pains, difficulty breathing, worsening of your condition, or as needed. Follow up with cardiology and your primary physician in 2-3 days for a recheck of your current condition. Case management will call in the morning to make you an appointment with cardiology. If you do not hear by them by noon then call the ER and ask to speak to case management.
[2017-06-19] MEDS ORDERED: NTRGSL/4 SL (02:38)
[2017-06-19 02:49] VITALS: BP 121/94; PULSE 81; O2SAT 94
== END 2017-06-19 02:49 | disposition home or self-care (01) ==
LOC: C.EDB 20:56 → C.EDA 06-19 02:49
DX: R07.2 Precordial pain (principal); J45.909 Unspecified asthma, uncomplicated; I10 Essential (primary) hypertension; Z87.01 Personal history of pneumonia (recurrent); Z80.9 Family history of malignant neoplasm, unspecified; Z83.3 Family history of diabetes mellitus; Z82.49 Family history of ischemic heart disease and other diseases of the circulatory system; Z79.899 Other long term (current) drug therapy

== ENCOUNTER 2017-06-28 23:07 | Observation (INO) | payer OTHER ==
[~2017-06-28] VITALS: Ht 160 cm; Wt 77.9 kg
[~2017-06-28 23:07] MED LIST changes: +BSP15 PO; +CYAN10005 PO; +ELET40TA PO; +LXP/20 PO; +NAPR500T3 PO; +NTRGSL/4 SL; -PRVHFAIN INH; +TIZA2CAP PO; +TIZA2TAB3 PO; +TPM100 PO; +VNTHFA/IN INH
[2017-06-28] MEDS ORDERED: NITROGLYCERIN 0.4 MG SL PER TAB CHARGE SL STA (23:49)
[2017-06-28] MEDS ORDERED: ASPIRIN 324 MG CHEW PO STA (23:49)
[2017-06-28] MEDS ORDERED: ATOR-22 PO (23:57)
[2017-06-28] MEDS ORDERED: ASPI81TA28 PO (23:58)
--- NOTE | 2017-06-28 23:59 | EMERGENCY ROOM VISIT NOTE ---
History Report prepared by Apoorva: Maral Lopez Under the Supervision of: Dr. Tuyet Kurtz D.O. First contact with patient: 23:26 Chief Complaint: CHEST PAIN Stated Complaint: CHEST PAIN,TOOK NITRO Nursing Triage Summary: chest pain started at 1850 tonight, substernal, wax and waning. Rating 7/10 at that time, took 1 nitro SL with relief at 1015pm. Pain increasing again then came to get eval. Has initial appt for cardiology this friday. History of Present Illness The patient is a 56 year old female who presents to the Emergency Room with complaints of episodes of chest pain starting four hours ago. The patient states that she was at the [facility] resting at her tent when the first episode occurred. She states that she took a Nitroglycerin and states that it took 4-5 minutes to kick in. She states that she decided to go home. She reports that she walked to the car, took it slow, and had stops to rest. She reports that she did not get an episode walking to the car. The patient reports that when she got home she ate toast and drank some water with her nightly medications. She reports that she went to bed, but didn't fall asleep. The patient states that she had a second episode an hour ago. She reports that she took another Nitroglycerin and reports that it took 8 minutes to take effect. She decided since there were two episodes and the Nitroglycerin was taking longer to react, to come to the ED. She reports that in the past when she has used Nitroglycerin she has had pain relief quickly. The patient complains of a mild soreness in her chest that she rates as a 4/10 in severity. The patient complains of nausea and some shortness of breath. The patient denies abdominal pain, leg swelling, and leg cramping. The patient notes she took a baby Aspirin this morning. She reports that she has an appointment scheduled with a PA in cardiology in two days and this will be the first appointment she has with cardiology as an outpatient. The patient notes a family history of heart disease. Source of History: patient Onset: four hours ago Position: chest Symptom Intensity: 4/10 Quality: other (soreness) Timing: other (episodes) Modifying Factors (Relieving): other (Nitroglycerin) Associated Symptoms: + SOB, + nausea, No abdominal pain Note: The patient denies leg swelling and leg cramping. Review of Systems See HPI for pertinent positives & negatives. A total of 10 systems reviewed and were otherwise negative. Past Medical & Surgical Medical Problems: (1) Asthma (2) Bronchitis (3) Chest pain, rule out acute myocardial infarction (4) History of blood clots (5) Hypertension (6) Pneumonia (7) possible cva (8) TIA or cervicle radiculopathy Surgical Problems: (1) H/O: hysterectomy Family History Cancer Diabetes mellitus Heart disease Hypertension Social History Smoking Status: Never Smoker Alcohol Use: none Drug Use: none Marital Status: Housing Status: lives with family Occupation Status: employed Current/Historical Medications Scheduled Aspirin (Aspirin Ec), 81 MG PO QAM Atorvastatin (Lipitor), 20 MG PO QPM Buspirone HCl (Buspirone HCl), 5 MG PO HS Cyanocobalamin (Vitamin B-12), 1,000 MCG PO DAILY Escitalopram Oxalate (Escitalopram Oxalate), 10 MG PO DAILY Nitroglycerin (Nitrostat), 1 TAB SL UD Tizanidine (Zanaflex), 1 MG PO QAM Tizanidine Hcl (Zanaflex), 2 MG PO HS Topiramate (Topiramate), 100 MG PO BID Scheduled PRN Albuterol Hfa (Ventolin Hfa), 2 PUFFS INH QID PRN for SOB/Wheezing Eletriptan Hydrobromide (Relpax), 40 MG PO UD PRN for Migraine Meclizine HCl (Meclizine HCl), 25 MG PO TID PRN for Dizziness or Vertigo Naproxen (Naproxen), 500 MG PO BID PRN for Pain Omeprazole (Prilosec), 20 MG PO BID PRN for Acid Reflux Ondansetron Hcl (Zofran), 4 MG PO Q8H PRN for Nausea Allergies Coded Allergies: Sulfa Antibiotics (Verified Allergy, Unknown, Unknown, 11/22/15) Physical Exam Vital Signs Date Time Temp Pulse Resp B/P (MAP) Pulse Ox O2 Delivery O2 Flow Rate FiO2 06/29/17 00:15 67 102/79 98 06/28/17 23:58 69 16 109/73 96 Room Air 06/28/17 23:22 98 Room Air 06/28/17 23:19 98 Room Air 06/28/17 23:11 36.7 81 20 119/79 97 Room Air Physical Exam HEENT: Head - normocephalic and atraumatic Pupils are equal, round, and reactive to light. Extraocular eye muscles are intact, and sclera are anicteric. Nose - moist nasal mucosa without discharge. Mouth - moist buccal mucosa. Oropharynx is nonerythematous and there is no tonsillar exudate or edema noted. Neck: Supple; no JVD, nuchal rigidity, cervical lymphadenopathy. Heart: Regular rate and rhythm. There is a normal S1 and S2 with no murmurs, clicks, or gallops appreciated. Lungs: Clear to auscultation bilaterally with no wheezes, rales, or rhonchi. Abdomen: Soft, completely nontender, nondistended, with good bowel sounds. There are no palpable pulsatile masses or hepatosplenomegaly. There is no guarding, rigidity, or rebound noted. Extremities: No evidence of cyanosis, clubbing, or edema. There are easily palpable peripheral pulses. Skin: warm and dry with good turgor and no rashes. Medical Decision & Procedures ER Provider Diagnostic Interpretation: Radiology results as stated below per my review and the radiologist's interpretation: SINGLE VIEW CHEST CLINICAL HISTORY: Atypical chest pain. FINDINGS: An AP, portable, upright chest radiograph is compared to study dated 06/18/2017 and correlated with chest CT dated 05/26/2017. The examination is degraded by portable technique and patient rotation. The cardiomediastinal silhouette is unremarkable. There is minimal left basilar atelectasis. The lungs and pleural spaces are otherwise clear. No pneumothorax is seen. The skeletal structures are osteopenic. The bony thorax is grossly intact. IMPRESSION: No active disease in the chest. Electronically signed by: Stuart Castellanos M.D. 06/29/2017 12:31 AM Dictated Date/Time: 06/29/2017 12:30 AM Laboratory Results 06/28/17 23:50 06/28/17 23:50 Test 06/28/17 23:50 Red Blood Count 4.56 M/uL (4.2-5.4) Mean Corpuscular Volume 89.7 fL (80-100) Mean Corpuscular Hemoglobin 28.5 pg (25-34) Mean Corpuscular Hemoglobin Concent 31.8 g/dl (32-36) RDW Standard Deviation 45.3 fL (36.4-46.3) RDW Coefficient of Variation 13.8 % (11.5-14.5) Mean Platelet Volume 10.2 fL (7.4-10.4) Prothrombin Time 10.6 SECONDS (9.0-12.0) Prothromb Time International Ratio 1.0 (0.9-1.1) Activated Partial Thromboplast Time 27.9 SECONDS (21.0-31.0) Partial Thromboplastin Ratio 1.1 Anion Gap 6.0 mmol/L (3-11) Est Creatinine Clear Calc Drug Dose 65.4 ml/min Estimated GFR () 78.1 Estimated GFR (Non- 67.3 BUN/Creatinine Ratio 16.4 (10-20) Calcium Level 8.5 mg/dl (8.5-10.1) Total Bilirubin 0.2 mg/dl (0.2-1) Aspartate Amino Transf (AST/SGOT) 14 U/L (15-37) Alanine Aminotransferase (ALT/SGPT) 22 U/L (12-78) Alkaline Phosphatase 65 U/L (45-117) Total Creatine Kinase 95 U/L (26-192) Creatine Kinase MB 1.3 ng/ml (0.5-3.6) Creatine Kinase MB Ratio 1.4 (0-3.0) Troponin I < 0.015 ng/ml (0-0.045) Total Protein 6.8 gm/dl (6.4-8.2) Albumin 3.5 gm/dl (3.4-5.0) Globulin 3.3 gm/dl (2.5-4.0) Albumin/Globulin Ratio 1.1 (0.9-2) Laboratory results per my review. Medications Administered Medications (Trade) Dose Ordered Sig/Leandro Route Start Time Stop Time Status Last Admin Dose Admin Aspirin (Aspirin Chew) 324 mg NOW STAT PO 06/28/17 23:49 06/28/17 23:53 DC 06/29/17 00:09 324 MG Nitroglycerin (Nitroglycerin 2% Oint) 0.5 inch NOW ONCE EXT 06/29/17 00:15 06/29/17 00:16 DC 06/29/17 00:21 0.5 INCH Procedure 2349: Ordered Aspirin 324 mg PO, Nitroglycerin 0.5 inch EXT. ECG Indication: chest pain Rate (beats per minute): 72 Rhythm: normal sinus Findings: no ectopy, other (T-wave flattening in inferior and lateral leads) ED Course 2337: Past medical records reviewed. The patient was evaluated in room A2. A complete history and physical exam was performed. An IV lock was initiated and labs are drones above. A twelve-lead EKG was obtained as described above. A chest x-ray was obtained as described above. 2349: Ordered Aspirin 324 mg PO, Nitroglycerin 0.5 inch EXT. 0009: Discussed the patient's case with Dr. Hutson. The patient will be evaluated for further management. 0045: I reevaluated the patient. She states that she had relaxation of her pain about 10 minutes after the Nitro Paste was placed. Medical Decision The patient is a 56 year old female who presents to the Emergency Room with complaints of episodes of chest pain starting four hours ago. Differential diagnoses include acute coronary syndrome, STEMI, end STEMI, GERD. LABS: Normal white count Stable H&H Negative cardiac markers Glucose 112 Normal LFTS Normal renal function Normal Coags The patient has been having intermittent episodes of chest discomfort over the summer. She had previous emergency department visits and an inpatient hospitalization where she saw cardiology. Initially, the discomfort was thought not to be cardiac in origin. However, she was set up to see cardiology as an outpatient for possible catheterization. The patient has a very strong family history of heart disease with both parents undergoing CABG as well as her 48-year-old brother. The patient's younger sister is being evaluated for CABG at this time. I believe the patient requires diagnostic cardiac catheterization for these recurrent episodes of chest discomfort relieved by nitroglycerin. The patient is chest pain-free at this time. She had negative cardiac biomarkers and a normal EKG. I discussed the case with the [facility] hospitalist and resident and they will evaluate for further management. Consults Time Called: 7 Consulting Physician: Dr. Hutson Returned Call: 8 Discussed the patient's case with Dr. Hutson. The patient will be evaluated for further management. Impression Primary Impression: Unstable angina Scribe Attestation The scribe's documentation has been prepared under my direction and personally reviewed by me in its entirety. I confirm that the note above accurately reflects all work, treatment, procedures, and medical decision making performed by me. Departure Information Dispostion Being Evaluated By Hospitalist Referrals Betsy Werner C.R.N.P. (PCP) Patient Instructions My [facility]
[2017-06-29 00:12] LABS: HEMATOCRIT 40.9 % (37-47); MEAN CELL VOLUME 89.7 fL (80-100); MEAN CORPUSCULAR HEMOGLOBIN 28.5 pg (25-34); MEAN CORPUSCULAR HGB CONC 31.8 g/dl (32-36); MEAN PLATELET VOLUME 10.2 fL (7.4-10.4); PLATELET COUNT 222 K/uL (130-400); RED BLOOD COUNT 4.56 M/uL (4.2-5.4); WHITE BLOOD COUNT 10.28 K/uL (4.8-10.8)
[2017-06-29] MEDS ORDERED: NITROGLYCERIN OINT 2% 1GM PACKET EXT ONE (00:15)
[2017-06-29 00:20] LABS: ALT/SGPT 22 U/L (12-78); BLOOD UREA NITROGEN 15 mg/dl (7-18); BUN/CREATININE RATIO 16.4 (10-20); CALCIUM 8.5 mg/dl (8.5-10.1); CARBON DIOXIDE 24 mmol/L (21-32); CHLORIDE 111 mmol/L (98-107); CREATININE 0.94 mg/dl (0.60-1.20); GLUCOSE 112 mg/dl (70-99); POTASSIUM 3.6 mmol/L (3.5-5.1); SODIUM 141 mmol/L (136-145)
[2017-06-29 00:25] LABS: ALB/GLOB RATIO 1.1 (0.9-2); ALKALINE PHOSPHATASE 65 U/L (45-117); AST/SGOT 14 U/L (15-37); CKMB/CK RATIO 1.4 (0-3.0)
--- NOTE | 2017-06-29 00:32 | DIAGNOSTIC IMAGING REPORT ---
SINGLE VIEW CHEST CLINICAL HISTORY: Atypical chest pain. FINDINGS: An AP, portable, upright chest radiograph is compared to study dated 06/18/2017 and correlated with chest CT dated 05/26/2017. The examination is degraded by portable technique and patient rotation. The cardiomediastinal silhouette is unremarkable. There is minimal left basilar atelectasis. The lungs and pleural spaces are otherwise clear. No pneumothorax is seen. The skeletal structures are osteopenic. The bony thorax is grossly intact. IMPRESSION: No active disease in the chest. Electronically signed by: Stuart Castellanos M.D. 06/29/2017 12:31 AM Dictated Date/Time: 06/29/2017 12:30 AM
[2017-06-29 00:44] LABS: PARTIAL THROMBOPLASTIN RATIO 1.1; PROTHROMBIN TIME (PATIENT) 10.6 SECONDS (9.0-12.0)
--- NOTE | 2017-06-29 01:09 | History and Physical ---
History & Physical Date & Time of Service: Jun 29, 2017 at 00:18 Chief Complaint: Chest Pain,Took Nitro Primary Care Physician: Betsy Werner C.R.N.P. History of Present Illness Source: patient, family, clinic records, hospital records Mrs Miranda is a 56 year old female who presents to the ER with chest pain. Site: [place] substernal Onset: started at 6:54pm while sitting lasting for around 5 minutes, then additional episode at 10:15pm while in bed - still present Character: dull ache Radiation: none Associated: diaphoresis, looking pale, shortness of breath, . No relationship to food Exacerbating/Alleviating: No relationship to food, pain not reproducible to palpation. Helps with Severity: At worse 7/10, currently 3/10 She has been having similar pains over the last month and generally not feeling well. On her admission in May she had an elevated d dimer so underwent a CTA which did not show a PE but she had a trace pleural effusion bilaterally, Mild bilateral bronchial wall thickening with multilobar distribution of mosaic attenuation suggesting bronchitis with air trapping. She was evaluated by cardiology and given severity of symptoms with negative cardiac enzymes and normal echocardiogram this essentially was felt to rule out cardiac ischemia as cause of her chest pain. She followed up with her PCP and was treated with prednisone, albuterol and doxycycline. She continued to have chest pains intermittent and returned to the ER with a severe attack on Jun 18 at which time she was treated with nitroglycerin which helped. She continued to have chest pains intermittent every 1-3 days since then which is relieved with nitroglycerin. Past Medical/Surgical History Medical Problems: (1) Asthma Status: Chronic (2) Bronchitis Status: Chronic (3) History of blood clots - superficial Status: Resolved (4) Hypertension Status: Chronic (5) Pneumonia Status: Chronic Surgical Problems: (1) H/O: hysterectomy Status: Resolved Family History Cancer Diabetes mellitus Heart disease Hypertension Mother - CABG Father - CABG Brother - CABG aged 48 years old Sister - being evaluated for CABG Social History Smoking Status: Never Smoker Drug Use: none Marital Status: Occupational Status: employed Immunizations History of Influenza Vaccine: No History of Tetanus Vaccine?: Yes Tetanus Immunization Date: Nov 10, 1998 History of Pneumococcal: No History of Hepatitis B Vaccine: No Multi-Drug Resistant Organisms History of MDRO: No Allergies Coded Allergies: Sulfa Antibiotics (Verified Allergy, Unknown, Unknown, 11/22/15) Home Medications Scheduled Aspirin (Aspirin Ec), 81 MG PO QAM Atorvastatin (Lipitor), 20 MG PO QPM Buspirone HCl (Buspirone HCl), 5 MG PO HS Cyanocobalamin (Vitamin B-12), 1,000 MCG PO DAILY Escitalopram Oxalate (Escitalopram Oxalate), 10 MG PO DAILY Nitroglycerin (Nitrostat), 1 TAB SL UD Tizanidine (Zanaflex), 1 MG PO QAM Tizanidine Hcl (Zanaflex), 2 MG PO HS Topiramate (Topiramate), 100 MG PO BID Scheduled PRN Albuterol Hfa (Ventolin Hfa), 2 PUFFS INH QID PRN for SOB/Wheezing Eletriptan Hydrobromide (Relpax), 40 MG PO UD PRN for Migraine Meclizine HCl (Meclizine HCl), 25 MG PO TID PRN for Dizziness or Vertigo Naproxen (Naproxen), 500 MG PO BID PRN for Pain Omeprazole (Prilosec), 20 MG PO BID PRN for Acid Reflux Ondansetron Hcl (Zofran), 4 MG PO Q8H PRN for Nausea Review of Systems Constitutional: No fever, No chills Eyes: No worsening of vision ENT: No hearing loss Respiratory: + cough (chronic since spring) Cardiovascular: + chest pain, No orthopnea, No PND, No edema, No claudication, No palpitations Abdomen: + nausea, No pain, No vomiting, No diarrhea, No constipation, No GI bleeding Musculoskeletal: No joint pain, No muscle pain Genitourinary - Female: No dysuria, No urinary frequency, No urinary urgency Endocrine: + fatigue Integumentary: No rash, No itch Physical Exam Vital Signs Date Time Temp Pulse Resp B/P (MAP) Pulse Ox O2 Delivery O2 Flow Rate FiO2 06/28/17 23:58 69 16 109/73 96 Room Air 06/28/17 23:22 98 Room Air 06/28/17 23:19 98 Room Air 06/28/17 23:11 36.7 81 20 119/79 97 Room Air General Appearance: WD/WN, no apparent distress Head: normocephalic, atraumatic Eyes: normal inspection, PERRL, EOMI Neck: supple, no JVD Respiratory/Chest: chest non-tender, lungs clear, normal breath sounds, no respiratory distress, no accessory muscle use Cardiovascular: regular rate, rhythm, no edema, no murmur, normal peripheral pulses Abdomen/GI: normal bowel sounds, non tender, soft Back: no CVA tenderness Extremities/Musculoskelatal: no calf tenderness, normal capillary refill, no pedal edema Neurologic/Psych: merchandising specialist II-XII nml as tested, no motor/sensory deficits, alert, oriented x 3 Skin: normal color, warm/dry, no rash Diagnostics Laboratory Results Results Past 24 Hours Test 06/28/17 23:49 06/28/17 23:50 Range/Units Creatine Kinase MB Ratio 0-3.0 White Blood Count 10.28 4.8-10.8 K/uL Red Blood Count 4.56 4.2-5.4 M/uL Hemoglobin 13.0 12.0-16.0 g/dL Hematocrit 40.9 37-47 % Mean Corpuscular Volume 89.7 80-100 fL Mean Corpuscular Hemoglobin 28.5 25-34 pg Mean Corpuscular Hemoglobin Concent 31.8 32-36 g/dl RDW Standard Deviation 45.3 36.4-46.3 fL RDW Coefficient of Variation 13.8 11.5-14.5 % Platelet Count 222 130-400 K/uL Mean Platelet Volume 10.2 7.4-10.4 fL Diagnostic Radiology SINGLE VIEW CHEST CLINICAL HISTORY: Atypical chest pain. FINDINGS: An AP, portable, upright chest radiograph is compared to study dated 06/18/2017 and correlated with chest CT dated 05/26/2017. The examination is degraded by portable technique and patient rotation. The cardiomediastinal silhouette is unremarkable. There is minimal left basilar atelectasis. The lungs and pleural spaces are otherwise clear. No pneumothorax is seen. The skeletal structures are osteopenic. The bony thorax is grossly intact. IMPRESSION: No active disease in the chest. Electronically signed by: Stuart Castellanos M.D. 06/29/2017 12:31 AM Dictated Date/Time: 06/29/2017 12:30 AM EKG Normal sinus rhythm 72 bpm No significant change from 19 June Impression Assessment and Plan 56 year old female with atypical chest pain - previously troponin negative Atypical chest pain - not cardiac per history and previously negative troponins - EKG unremarkable - initial troponin negative - repeat troponin in morning - continue nitro 1inch paste - consult cardiology in morning for consideration of cath given family history and multiple admissions - ESR to assess for autoimmune disease - trial duoneb to assess whether this helps with the chest tightness Chronic medical problems Anxiety and depression - continue lexapro and buspar Hyperlipidemia - continue atorvastatin Spasticity - continue tizanidine Migraine prophylaxis - continue topiramate VTE Prophylaxis - heparin 5000 units Q8H SQ Code - Full Disposition - observation status for chest pain rule out Resident Physician Supervision Note: I was present with Dr. Davis during the history and exam. I discussed the case with the resident and agree with the findings and plan as documented in the note. Any exceptions or clarifications are listed here: 56 y/o F Hx HTN and recurrent atypical CP - previous admissions with same and negative W/U thus far OE AAO x 3 S1,2 R CTAB NT, ND No CCE P: Presentation is atypical and there is no evidence of cardiac etiology by current EKG/enzymes She has a strong family history and persistent symptoms so may merit a cath for definitive eval Cardiology consulted Documented By: Jan Hutson Level of Care Telemetry Resuscitation Status FULL RESUSCITATION VTE Prophylaxis VTE Risk Assessment Done? Y/N: Yes Risk Level: Moderate Given or contraindicated: Unfractionated heparin SQ Additional Copies To Rosette Miranda ., ATTILA; Betsy Werner ,CLuzR.NLuzP. Resident Tracking Resident Involvement: Resident Care Provided Care Provided: Adult Hospital Medicine
[2017-06-29] MEDS ORDERED: ALBUTEROL HFA 8 GM INHALER INH PRN (01:15)
[2017-06-29] MEDS ORDERED: NITROGLYCERIN 0.4 MG SL PER TAB CHARGE SL SCH (01:15)
[2017-06-29] MEDS ORDERED: MECLIZINE HCL 25 MG TAB PO PRN (01:15)
[2017-06-29] MEDS ORDERED: ONDANSETRON INJ 2 MG/ML 2 ML VIAL IV PRN (01:15)
[2017-06-29] MEDS ORDERED: ALBUT/IPRATROP 3MG/0.5MG NEB 3 ML VIAL INH ONE (01:30)
[2017-06-29] MEDS ORDERED: IV FLUIDS COMPLETED PRN (01:45)
[2017-06-29 03:06] VITALS: BP 121/78; PULSE 74; TEMP 36.6; O2SAT 96; Ht 160 cm; Wt 77.9 kg
[2017-06-29 04:00] VITALS: BP 96/60; PULSE 71; TEMP 36.5; O2SAT 96
[2017-06-29] MEDS: ACETAMINOPHEN 325 MG TAB PO PRN ×2 (04:27→10:13)
[2017-06-29 05:04] LABS: BASO % 0.7 %; BASO ABS # 0.06 K/uL (0-0.2); COMPLETE YES; EOS % 3.3 %; HEMATOCRIT 38.7 % (37-47); IG% 0.2 %; LYMPH % 36.3 %; LYMPH ABS # 3.18 K/uL (1.2-3.4); MEAN CELL VOLUME 89.6 fL (80-100); MEAN CORPUSCULAR HEMOGLOBIN 28.5 pg (25-34); MEAN CORPUSCULAR HGB CONC 31.8 g/dl (32-36); MEAN PLATELET VOLUME 9.9 fL (7.4-10.4); MONO % 6.1 %; NEUT % 53.4 %; PLATELET COUNT 195 K/uL (130-400); RED BLOOD COUNT 4.32 M/uL (4.2-5.4); WHITE BLOOD COUNT 8.75 K/uL (4.8-10.8)
[2017-06-29 05:30] LABS: BLOOD UREA NITROGEN 14 mg/dl (7-18); BUN/CREATININE RATIO 14.8 (10-20); CALCIUM 8.6 mg/dl (8.5-10.1); CARBON DIOXIDE 25 mmol/L (21-32); CHLORIDE 113 mmol/L (98-107); CREATININE 0.91 mg/dl (0.60-1.20); GLUCOSE 97 mg/dl (70-99); POTASSIUM 3.7 mmol/L (3.5-5.1); SODIUM 144 mmol/L (136-145)
[2017-06-29] MEDS: HEPARIN SOD 5000 UNIT/0.5 ML CARP SQ SCH ×2 (06:42→13:49)
[2017-06-29 08:15] VITALS: BP 117/73; PULSE 73; TEMP 36.4; O2SAT 94
[2017-06-29] MEDS ORDERED: ASPIRIN 81 MG ECTAB PO SCH (09:00)
[2017-06-29] MEDS ORDERED: TiZANIdine 1 MG TAB PO SCH (09:00)
[2017-06-29] MEDS ORDERED: CYANOCOBALAMIN 500 MCG TAB (VIT B-12) PO SCH (09:00)
[2017-06-29] MEDS ORDERED: TOPIRAMATE 100 MG TAB PO SCH (09:00)
[2017-06-29] MEDS ORDERED: ESCITALOPRAM OXALATE 10 MG TAB PO SCH (09:00)
[2017-06-29] MEDS ORDERED: PANTOprazole SOD 40 MG TAB PO SCH (09:00)
--- NOTE | 2017-06-29 11:53 | CARDIOLOGY CONSULTATION ---
DATE OF CONSULTATION: 06/29/2017 TIME: 10:48 a.m. CONSULTING PHYSICIAN: Dr. Davis. REASON FOR CONSULTATION: Question need for catheterization. HISTORY OF PRESENT ILLNESS: Ms. 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 She first experienced chest pain in May, which prompted a hospitalization on 05/25/2017. She was in a shopping center and did not feel well, feeling weak. She had a recent change in one of her medications, the Zanaflex, and wondered if it was related. She then had coffee and cinnamelt before going home. Her blood pressure was okay, but she continued to feel ill throughout the rest of the day. The next day, she developed chest discomfort, which prompted her hospitalization. It was reported that her chest pain was prolonged, lasting a few hours and despite this, had unremarkable troponin levels and an unremarkable echo. It was felt that her symptoms were noncardiac etiology. She also was noted to have reproducible chest pain upon palpation by Dr. Tillman, who is a chief service dispatcher that evaluated her during that hospitalization. No further ischemic evaluation is recommended at that time. She was then seen in the Emergency Department on 06/18/2017 for an episode of jaw pain that lasted at least 1.5 hours constantly once again with negative troponins. She was given nitroglycerin and a GI cocktail and her symptoms resolved. She was discharged from the Emergency Department. Yesterday while at 1854, she was sitting and had substernal chest discomfort, described as a pressure. It radiated into her upper back. Her son, Kristian, felt her pulse and thought it was fast and said that she looked pale. There was no shortness of breath, but she did have associated shortness of breath in the past. She recalls eating pizza, cookies and coffee 2-3 hours prior to this episode. There was also associated nausea. She took a nitroglycerin and believes that her pain resolved in approximately 5 minutes. A few minutes later, she took a pill for nausea. Later last night at 2215, she had chest pain while lying down at home. Prior to that, she took her medications and some toast. For this chest pain, she once again took nitroglycerin, but it took 8 minutes before her pain resolved. She came to the ER and reports that she had chest pain in the Emergency Department, but does not recall the duration of the pain. She states that she was given nitroglycerin paste at that time. Although she appears to have eaten prior to many of these episodes, she otherwise cannot identify any specific triggers. Chest pain has been occurring at rest. It is not necessarily associated with exertion. There were no other alleviating factors such as position, although she does take nitroglycerin and the pain tends to resolve within a few minutes typically. She is currently chest pain free. She denies shortness of breath, syncope, near syncope, palpitations, orthopnea, PND, edema, rash, fevers, chills, melena, hematochezia, hematuria, or vomiting. She states that she was diagnosed with anticardiolipin antibody issues in the past and took warfarin for 4 years, but had difficulties regulating it. She then was given Aggrenox, but states that aspirin was causing a taste in the back of her mouth, thought to be acid reflux and therefore that was discontinued. Aspirin was recently started from her other hospitalizations. REVIEW OF SYSTEMS: As above and review of systems is otherwise negative/unremarkable other than a dry cough. PAST MEDICAL HISTORY: 1. Hypertension. 2. Dyslipidemia. 3. Asthma. 4. Vertigo. 5. Arthritis. 6. Varicose veins. 7. Reported TIAs. 8. Complex migraines. 9. Possible anticardiolipin antibody issues, on anticoagulation in the past. Her anticardiolipin IgG antibody was 16 on 06/08/2004. HOME MEDICATIONS: Include aspirin 81 mg daily, Lipitor 20 mg daily, buspirone 5 mg at bedtime, escitalopram 10 mg daily, nitroglycerin p.r.n., Zanaflex 2 mg at bedtime and 1 mg q.a.m., topiramate 100 mg p.o. b.i.d., albuterol inhaler p.r.n., Relpax p.r.n., meclizine p.r.n., naproxen p.r.n., omeprazole 20 mg p.o. b.i.d. p.r.n., and Zofran 4 mg p.o. q. 8 hours p.r.n. SOCIAL HISTORY: Denies tobacco or alcohol abuse. She is a . Her in August 2015. She has 1 son, named Kristian, who is present with her at the bedside. Kristian lives on the family farm [place] [address] [place]. They raise goats, chickens and other animals. They live in [place]. FAMILY HISTORY: Her older sister had CABG at the age of 48. Another sister has multivessel CAD diagnosed at the age of 59. Mother and father also had coronary artery disease reported. PHYSICAL EXAMINATION: VITAL SIGNS: Temperature 36.4 degrees, heart rate 73 beats per minute, respiratory rate 20, blood pressure 117/73 mmHg, oxygen saturation 94% on room air, and weight 77.9 kg. GENERAL: No acute distress. She is alert and oriented. HEENT: Anicteric sclerae. NECK: No appreciable JVD. No bruits. Normal carotid upstrokes bilaterally. CARDIAC EXAMINATION: PMI was nondisplaced. There was no ventricular heave. Regular, normal S1 and S2. No audible murmurs, rubs or gallops. LUNGS: Clear to auscultation bilaterally without wheezes, rales or rhonchi. ABDOMEN: Soft, nontender, and nondistended. Normoactive bowel sounds. No bruits noted. EXTREMITIES: No cyanosis or edema. 2+ radial pulses bilaterally. Sidney's test okay. 2+ dorsalis pedis pulses bilaterally. No palpable cords. PSYCHIATRIC: Affect appears appropriate. CHEST: There is some tenderness in the substernal area; however, she states that this does not reproduce the pain, for which she presented to the Emergency Department. She states that this is a different type of pain from the pressure of palpation. Telemetry personally reviewed. No arrhythmias. LABORATORY DATA: White blood cell count 8.75, hemoglobin 12.3, and platelets 195. Sodium 144, potassium 3.7, BUN 14, and creatinine 0.9. Troponin undetectable x2. Albumin 3.5. INR 1. Chest x-ray image personally reviewed. No infiltrate. Radiology as interpreted this as no active disease. CT scan of the chest was performed on 05/26/2017 and reported as no acute aortic pathology or evidence of pulmonary thromboembolic disease. Mild bilateral bronchial wall thickening with multilobar distribution of mosaic attenuation suggest bronchitis with air trapping. Enlarged subcarinal adenopathy, likely reactive per radiology. ECG upon presentation demonstrated sinus rhythm at 72 beats per minute. Nonspecific T-wave abnormality. Echocardiogram on 05/26/2017 reported as normal LV systolic function with an EF of 60%-65%. No significant valvular abnormalities. ASSESSMENT AND PLAN: 1. Chest pain: Her chest pain is atypical. She has had prolonged episodes reported in the past with negative cardiac enzymes and no wall motion abnormalities on echo. Given the fact that she continues to have symptoms and has a strong family history as well as other risk factors such as hypertension and dyslipidemia, nonischemic evaluation recommended. Stress echo will be done today. Would not recommend invasive procedure such as cardiac catheterization at this time for her atypical symptoms, which have not been consistent with ischemic heart disease over the past month. If the stress echo was unremarkable, would recommend further evaluation into her chest pain such as potential GI evaluation given gastroesophageal reflux disease symptoms in the past and the fact that some of her symptoms that she described today did occur after drinking coffee and eating other items. Could also evaluate lungs; however, she did have a recent CT scan without evidence of pulmonary embolism. 2. Dyslipidemia: On statin therapy. Managed by PCP. 3. Hypertension: Blood pressure has been reasonably controlled. She is not on any antihypertensive agents at this time. 4. History of elevated anticardiolipin antibody: This was discussed with Dr. Laird as the patient herself is concerned about this history and she would like this to be further evaluated. She asked that Dr. Farias's prior notes discussing this be reviewed; however, they are not available as they likely were from 2003 and are not available at this time. This was discussed with Dr. Laird and he states that he will further investigate and we will defer this to Dr. Laird in the primary service. 5. Disposition: Stress echo pending. If stress echo is unremarkable, would not pursue any further ischemic evaluation at this time, but rather other investigation into her chest pain from a noncardiac perspective. Thank you for allowing me to participate in care of Ms. Miranda. The patient's care has been discussed with Dr. Laird of the primary hospitalist service. Please call for any other questions or concerns. Sincerely, THERESA
--- NOTE | 2017-06-29 12:46 | EXERCISE STRESS ECHO ---
*NOTICE TO RECEIVING [employer] This information is strictly Confidential and protected under [place] law. [place] law prohibits you from making any further disclosure of this information unless further disclosure is expressly permitted by the written consent of the person to whom it pertains or is authorized by law. A general authorization for the release of medical or other information is not sufficient for this purpose. Hospital accepts no responsibility if the information is made available to any other person, INCLUDING THE PATIENT. Interpretation Summary * Name: DONTA MIGUEL Study Date: 06/29/2017 10:38 AM BP: 122/82 mmHg * Patient Location: C.2T\S\S229\S\2 HR: 71 * : 1960 (M/d/yy) Gender: Female Height: 63 in * Age: 56 yrs Ethnicity: CA Weight: 171 lb * Ordering Physician: Bhavin Cordova MD * Performed By: Sydney Barillas * * Reason For Study: CHEST PAIN * BSA: 1.8 m2 * -- Conclusions -- * Stress Echo: * 1. Negative stress echo for ischemia at 87 % MPHR. * 2. Negative exercise ECG for ischemia at 87 % MPHR. * 3. Appropriate blood pressure response to exercise. * 4. No arrhythmia. * 5. Study terminated due to fatigue. No chest pain reported. * 6. Poor exercise tolerance. * 7. Technically difficult study, enhanced with IV Definity. Procedure Details * A contrast injection of Definity was performed to improve assessment of LV function. * Contrast was injected into an intravenous site in the left arm. * One vial of Definity ultrasound contrast was diluted in normal saline to a total volume of 10 ml. A total of '4' ml of solution was administered during imaging. * Lot # [id number] of Definity utilized for procedure. * Expiration date 06/27. * The attending nurse who injected the contrast agent was APARNA CAMPOS RN. Left Ventricle * The left ventricle is normal in size. * There is normal left ventricular wall thickness. * Left ventricular systolic function is normal. * Resting wall motion: Normal. Stress wall motion: Appropriate increase in Left ventricular systolic function and decrease in cavity size. No stress induced segmental wall motion abnormalities. * The left ventricular ejection fraction increases normally with stress. The left ventricular end-systolic cavity size reduces post-stress (normal response). The left ventricular wall motion with stress is normal. Stress Parameters * Sinus rhythm at 75 bpm. Nonspecific T-wave abnormality. * Stress ECG: No ST changes. No arrhythmias. * No arrhythmia were noted with stress. * The stress portion of this study was personally supervised by the undersigned interpreting physician. * Rest heart rate was '71' BPM. * Rest blood pressure was '122/82' * Maximum heart rate achieved was 142 bpm. * Maximum heart rate was 87 % of maximum age-predicted heart rate. * Maximum blood pressure was '143/95' * Total exercise time was '3:56' * Maximum exercise MET level achieved was '5.70' METS * Maximum treadmill speed was '2.50' miles per hour. * Maximum treadmill elevation was '12.00'% grade. * Exercise was terminated due to 'fatigue' * The patient exhibited fatigue during exercise. * Normal blood pressure response to exercise. MMode 2D Measurements and Calculations IVSd 0.79 cm LVIDd 3.6 cm LVIDs 2.5 cm LVPWd 0.67 cm IVS/LVPW 1.2 FS 31.4 % EDV(Teich) 55.4 ml ESV(Teich) 22.1 ml EF(Teich) 60.1 % EDV(cubed) 47.7 ml ESV(cubed) 15.4 ml EF(cubed) 67.7 % LV mass(C)d 70.6 grams LV mass(C)dI 39.0 grams/m\S\2 SV(Teich) 33.3 ml SI(Teich) 18.4 ml/m\S\2 SV(cubed) 32.2 ml SI(cubed) 17.8 ml/m\S\2
--- NOTE | 2017-06-29 13:09 | Discharge Instructions ---
Discharge Instructions Date of Service Jun 29, 2017. Admission Reason for Admission: Chest Pain, Rule Out Acute Myocardial Infarction Discharge Discharge Diagnosis / Problem: Chest pain Discharge Goals Goal(s): Decrease discomfort, Improve function Activity Recommendations Activity Limitations: resume your previous activity . Instructions / Follow-Up Instructions / Follow-Up Please follow up with pulmonology on FridayJuly 02 as already scheduled. Follow up with your primary care provider as soon as possible as well. Consider discussing the following: - The results of your cardiac stress test. - The results of your specialized lab testing obtained just before your hospital discharge. - Use of antacid medications for possible stomach sources of your pain. - Consideration of an EGD in the future. Return to the nearest emergency department for any new or uncontrolled chest pain, difficulty breathing, or with any acute concerns. Current Hospital Diet Patient's current hospital diet: Regular Diet Discharge Diet Recommended Diet: Regular Diet Pending Studies Studies pending at discharge: yes (lab work) List of pending studies: Antiphospholipid antibodies Beta-2 Glycoprotein antibodies Lupus anticoagulant Laboratory Results Hemoglobin A1c Test 06/29/17 06:48 Range/Units Last Resulted 06/29/17 04:30 Red Blood Count 4.32, Mean Corpuscular Volume 89.6, Mean Corpuscular Hemoglobin 28.5, Mean Corpuscular Hemoglobin Concent 31.8, Mean Platelet Volume 9.9, Neutrophils (%) (Auto) 53.4, Lymphocytes (%) (Auto) 36.3, Monocytes (%) (Auto) 6.1, Eosinophils (%) (Auto) 3.3, Basophils (%) (Auto) 0.7, Neutrophils # (Auto) 4.67, Lymphocytes # (Auto) 3.18, Monocytes # (Auto) 0.53, Eosinophils # (Auto) 0.29, Basophils # (Auto) 0.06 Last Resulted 06/29/17 04:30 Past 24 Hours Test 06/28/17 23:50 06/29/17 04:30 Range/Units Creatine Kinase MB 1.3 0.5-3.6 ng/ml Creatine Kinase MB Ratio 1.4 0-3.0 Prothromb Time International Ratio 1.0 0.9-1.1 Prothrombin Time 10.6 9.0-12.0 SECONDS Total Creatine Kinase 95 26-192 U/L Troponin I < 0.015 < 0.015 0-0.045 ng/ml Medical Emergencies . Who to Call and When: Medical Emergencies: If at any time you feel your situation is an emergency, please call 911 immediately. . Non-Emergent Contact Non-Emergency issues call your: Primary Care Provider, Ad Clerk . . "Provider Documentation" section prepared by Issa Alarcon. . VTE Core Measure Inpt VTE Proph given/why not?: Unfractionated heparin SQ
[2017-06-29] MEDS ORDERED: OMEP20CA9 PO ×2 (13:16→13:17)
[2017-06-29] MEDS ORDERED: RANI150T3 PO (13:16)
--- NOTE | 2017-06-29 13:30 | Discharge Summary ---
Discharge Summary Date of Service Jun 29, 2017. (Josh. Alarcon M.D.) Discharge Summary Admission Date: Jun 29, 2017 at 01:08 Discharge Date: Jun 29, 2017 Discharge Disposition: Home Principal Diagnosis: Chest pain Immunizations: Have You Had Influenza Vaccine: No History of Tetanus Vaccine?: Yes Tetanus Immunization Date: Nov 10, 1998 History of Pneumococcal: No History of Hepatitis B Vaccine: No Procedures: Cardiac stress test Consultations: Cardiology (Josh. Alarcon M.D.) Medication Reconciliation New Medications: Ranitidine Hcl (Zantac) 150 Mg Tab 150 MG PO PM for 30 Days, #30 TAB Continued Medications: Albuterol Hfa (Ventolin Hfa) 200 Puffs/33634 Mcg Aers 2 PUFFS INH QID PRN for SOB/Wheezing Aspirin (Aspirin Ec) 81 Mg Tab 81 MG PO QAM Atorvastatin (Lipitor) 20 Mg Tab 20 MG PO QPM Buspirone HCl (Buspirone HCl) 15 Mg Tab 5 MG PO HS TAKE 1/3rd OF A TABLET AT BEDTIME Cyanocobalamin (Vitamin B-12) 1,000 Mcg Tab 1000 MCG PO DAILY, TAB Eletriptan Hydrobromide (Relpax) 40 Mg Tab 40 MG PO UD PRN for Migraine, #6 TAKE ONE TABLET AT ONSET OF MIGRAINE, MAY REPEAT AFTER 2 HOURS IF NEEDED Escitalopram Oxalate (Escitalopram Oxalate) 20 Mg Tab 10 MG PO DAILY TAKE HALF A TABLET (10 MG) DAILY Meclizine HCl (Meclizine HCl) 25 Mg Tab 25 MG PO TID PRN for Dizziness or Vertigo Naproxen (Naproxen) 500 Mg Tab 500 MG PO BID PRN for Pain Nitroglycerin (Nitrostat) 0.4 Mg Tab 1 TAB SL UD, #15 TAB 0 Refills Omeprazole (Prilosec) 20 Mg Cap 20 MG PO BID for 30 Days, #60 CAP 0 Refills (This prescription has been renewed) Ondansetron Hcl (Zofran) 4 Mg Tab 4 MG PO Q8H PRN for Nausea, TAB Tizanidine (Zanaflex) 2 Mg Cap 1 MG PO QAM, CAP 1/2 TABLET DOSE Tizanidine Hcl (Zanaflex) 2 Mg Tab 2 MG PO HS Topiramate (Topiramate) 100 Mg Tab 100 MG PO BID Discharge Exam On morning eval, her CP and SOB were completely resolved, though she was on nitropaste. No overnight concerns, denied WING, abd pain, N/V/D, extremity pain or swelling, or any other acute c/o. Review of Systems: Constitutional: No fever, No chills Respiratory: No cough, No shortness of breath Cardiovascular: No chest pain Abdomen: No nausea, No vomiting Neurologic: No weakness Integumentary: No rash Physical Exam: General Appearance: WD/WN, no apparent distress (speaking very comfortably) Respiratory/Chest: lungs clear, normal breath sounds Cardiovascular: regular rate, rhythm, no edema, no murmur Abdomen / GI: normal bowel sounds, non tender, soft Extremities: normal inspection, no calf tenderness, no pedal edema, + pertinent finding (bilateral vericose veins) Neurologic/Psychiatric: alert Skin: normal color (Josh. Alarcon M.D.) Hospital Course 56yo female presented to ED with chest pain x 4 hours acutely. Recent hx of the same, admitted in May 2017, no cardiac cause found at that time. Pt says it recurred but would improve with NTG. However, last night it didn't respond as quickly to NTG as before, prompting further eval. At that time pt c/o "soreness", nausea (no emesis), and mild SOB. She denied any abd pain, leg swelling, or other acute c/o. She had recently been on abx and prednisone for ? bronchitis and has a pending pulmonology appt for three days from time of admit. Has albuterol at home, doesn't need to use it much. Also denied any relation of sx to food or activity. In hospital, pt remained for < 24 hours for cardiology eval and stress test. On morning eval, her CP and SOB were completely resolved, though she was on nitropaste. EKG and TnI were negative. Per their verbal report, pt did not complete the test due to some cough, however she never had any ischemic EKG changes or chest pain, so it was considered negative (formal report pending). She had a prescheduled appt with them for Mon 21Aug but that can now be cancelled. Immediately following her stress test pt requested to leave the hospital. Had lengthy conversation with pt. Rec'd she f/u with her PCM for ongoing eval to include discussion of possible pulm and GI sources. Anxiety may also be playing a role, though more a diagnosis of exclusion. Agreed to re-order antiphospholipid antibodies, beta-2 Glycoprotein antibodies, and lupus anticoagulant testing prior to her hospital d/c with understanding she needs to f/u with PCM for results. Rx'ed prilosec BID scheduled and zantac q PM for the next month as trial of sx control. Pt agreed with above plan and all current questions answered. Total Time Spent: Greater than 30 minutes This includes examination of the patient, discharge planning, medication reconciliation, and communication with other providers. (Josh. Alarcon M.D.) Resident Physician Supervision Note: I was present with Dr. Alarcon during the history and exam. I discussed the case with the resident and agree with the findings and plan as documented in the note. Any exceptions or clarifications are listed here: I also personally discussed the case with the employment consultant. Documented By: Da Laird Total Time Spent: Less than 30 minutes (Da Laird,D.O.) Discharge Instructions Please refer to the electronic Patient Visit Report (Discharge Instructions) for additional information. (Josh. Alarcon M.D.) Follow-Up With PCM and pulmonology. (Josh. Alarcon M.D.)
[2017-06-29 13:31] VITALS: BP 117/73; PULSE 73; TEMP 36.4; O2SAT 94
[2017-06-29] MEDS ORDERED: ATORVASTATIN 20 MG TAB PO SCH (21:00)
[2017-06-30 07:26] LABS: ESTIMATED AVERAGE GLUCOSE 120 mg/dl; HA1C FLAG Normal (Normal)
== END 2017-06-29 14:15 | disposition home or self-care (01) ==
LOC: C.EDB 23:08 → C.2T 06-29 01:08
PROVIDERS: ADMIT Internal Medicine; ATTEND Internal Medicine
DX: I20.0 Unstable angina (principal); I10 Essential (primary) hypertension; J45.909 Unspecified asthma, uncomplicated; Z86.73 Personal history of transient ischemic attack (TIA), and cerebral infarction without residual deficits; Z86.718 Personal history of other venous thrombosis and embolism; Z79.82 Long term (current) use of aspirin; Z79.899 Other long term (current) drug therapy; Z82.49 Family history of ischemic heart disease and other diseases of the circulatory system; Z83.3 Family history of diabetes mellitus

== ENCOUNTER → 2017-07-21 | Outpatient (CLI) | payer OTHER ==
[~2017-07-21] MED LIST changes: +ASPI81TA28 PO; +ATOR-22 PO; +RANI150T3 PO
--- NOTE | 2017-07-21 15:32 | DIAGNOSTIC IMAGING REPORT ---
SINUSES MIN 3 VIEWS ROUTINE CLINICAL HISTORY: COUGH BRONCHITIS ABNORMAL FINDING ON LUNG dyspnea COMPARISON STUDY: None FINDINGS: All major sinuses are clear. No significant mucosal thickening. Mastoid air cells are clear IMPRESSION: Normal study The above report was generated using voice recognition software. It may contain grammatical, syntax or spelling errors. Electronically signed by: Herminio Carlin M.D. 07/21/2017 3:31 PM Dictated Date/Time: 07/21/2017 3:30 PM
[2017-07-21 17:24] LABS: BASO % 0.6 %; BASO ABS # 0.05 K/uL (0-0.2); COMPLETE YES; EOS % 2.9 %; HEMATOCRIT 46.6 % (37-47); IG% 0.1 %; LYMPH % 34.3 %; LYMPH ABS # 2.72 K/uL (1.2-3.4); MEAN CORPUSCULAR HEMOGLOBIN 29.5 pg (25-34); MEAN CORPUSCULAR HGB CONC 32.8 g/dl (32-36); MEAN PLATELET VOLUME 11.3 fL (7.4-10.4); MONO % 5.5 %; NEUT % 56.6 %; PLATELET COUNT 252 K/uL (130-400); RED BLOOD COUNT 5.18 M/uL (4.2-5.4); WHITE BLOOD COUNT 7.93 K/uL (4.8-10.8)
[2017-07-21 17:36] LABS: PARTIAL THROMBOPLASTIN RATIO 1.1; PROTHROMBIN TIME (PATIENT) 10.6 SECONDS (9.0-12.0)
[2017-07-21 17:58] LABS: ALT/SGPT 20 U/L (12-78); BLOOD UREA NITROGEN 16 mg/dl (7-18); BUN/CREATININE RATIO 14.6 (10-20); CALCIUM 9.6 mg/dl (8.5-10.1); CARBON DIOXIDE 26 mmol/L (21-32); CHLORIDE 110 mmol/L (98-107); GLUCOSE 99 mg/dl (70-99); POTASSIUM 3.9 mmol/L (3.5-5.1); SODIUM 142 mmol/L (136-145)
[2017-07-21 18:01] LABS: ALB/GLOB RATIO 1.1 (0.9-2); ALKALINE PHOSPHATASE 77 U/L (45-117); AST/SGOT 18 U/L (15-37)
== END | disposition home or self-care (01) ==
LOC: C.RADPV 14:52
PROVIDERS: ATTEND Internal Medicine Pulmonary Disease
DX: R91.8 Other nonspecific abnormal finding of lung field (principal); J40 Bronchitis, not specified as acute or chronic; R05 Cough; E78.5 Hyperlipidemia, unspecified

== ENCOUNTER → 2017-07-31 | Day surgery (SDC) | payer OTHER ==
[2017-07-31] VITALS (16 sets, daily range): BP systolic 114–188; BP diastolic 74–94; PULSE 60–77; TEMP 36.5–37.1; O2SAT 89–100; Ht 160 cm; Wt 76.5 kg
[~2017-07-31] VITALS: Ht 160 cm; Wt 76.5 kg
[~2017-07-31] MED LIST changes: +FENTANYL CITRATE 100 MCG 2 ML CARP IV ONE; +FENTANYL CITRATE INJ 50 MCG/1 ML 2 ML VIAL IV ONE; +MIDAZOLAM HCL 5 MG/ML 1 ML VIAL IV ONE; +NURSING VERBAL MED ORDER ONE; -RANI150T3 PO
--- NOTE | 2017-07-31 08:22 | History and Physical ---
History & Physical Date Jul 31, 2017. Chief Complaint Chronic cough with associated chest tightness February 2017 History of Present Illness The patient is a 56 year old female with complaints of chronic cough 56-year-old white female with 1 grown son who was in attendance at the office visit was referred to the Pulmonary Department by her primary care provider Betsy Werner for pulmonary evaluation. Patient has never smoked but did have secondary exposure from her father smoking. He at age 77 of esophageal CA. Patient states she has complained since February of an intermittent chest tightness associated with cough and worsening dyspnea with exertion. She has been diagnosed with ''asthma since her youth and but has only used Ventolin inhaler p.r.n.. She was started on azithromycin in June for persistent cough. Chest x-ray on 06/05/2017 showed no active disease. She was admitted overnight on June 29 because of atypical chest pain after having been seen in the emergency room. The chest pain lasted for 4 hours and she underwent stress echocardiography with no ischemic changes noted. She also underwent a hypercoagulable workup including anti phospholipid antibodies, beta 2 glycoprotein antibodies,and lupus anti anticoagulant testing which apparently were negative. She was placed on Prilosec 20 mg p.o. b.i.d. for reflux. Her stress tests administered by Dr. Cordova achieved her target heart rate without ischemic changes seen. She does not obtain yearly flu vaccination and a CT angiogram of her chest on 05/26/2017 showed no acute evidence of pulmonary thromboembolic disease but bronchial wall thickening with multi lobar distribution of mosaic attenuation suggesting bronchitis with air trapping was noted. Trace pleural effusions with mildly enlarged subcarinal adenopathy noted. The chest discomfort was described as mid sternal and made worse with paroxysms of coughing which she has subscribed to. Chest x-ray on 06/29/2017 showed minimal left basilar atelectasis. Active Problems 1. Allergic reaction 2. Bronchitis 3. Confusion with non-focal neuro exam 4. Constipation 5. Cough 6. Depression with anxiety 7. Dizziness 8. Headache, hemiplegic migraine 9. Hyperlipidemia 10. Hypertension 11. Nausea in adult patient 12. Numbness and tingling of right arm 13. Osteopenia 14. Other specified abnormal immunological findings in serum 15. Peripheral neuropathy 16. Polyarthritis 17. Right hemiplegia 18. Speech disturbance 19. Tingling 20. Transient cerebral ischemic attack 21. Varicose veins 22. Benzodiazepine dependence Family History 1. cardiac disorder 2. diabetes mellitus 3. hypertension 4. alcoholism Social History Always uses seat belt Denied: History of Dental care, regularly Exercises daily Living situation Never a smoker Never used moist powdered tobacco No alcohol use No drug use No secondhand smoke exposure Retired Special needs due to visual impairment Current Meds 1. Ventolin HFA 108 (90 Base) MCG/ACT Inhalation Aerosol Solution; As needed; 2. Escitalopram Oxalate 20 MG Oral Tablet; TAKE 1/2 TABLET DAILY; 3. TiZANidine HCl - 2 MG Oral Tablet; TAKE 1/2 tab in am and 1 full tab at bedtime 4. Atorvastatin Calcium 20 MG Oral Tablet; TAKE 1 TABLET AT BEDTIME; 5. Omeprazole 20 MG Oral Capsule Delayed Release; TAKE 1 CAPSULE TWICE DAILY; 6. Ondansetron 4 MG Oral Tablet Disintegrating; TAKE 1 TABLET Every 8 hours LA 7. Topiramate 100 MG Oral Tablet; TAKE 1 TABLET TWICE DAILY; 8. Naproxen 500 MG Oral Tablet; 1 tablet po BID with food prn; 9. Aspirin 81 MG Oral Tablet Delayed Release; TAKE 1 TABLET DAILY; 10. BusPIRone HCl - 5 MG Oral Tablet; TAKE 1 TABLET BY MOUTH AT BEDTIME 11. Citracal TABS; 1200 mg; 12. CVS Vitamin B-12 1000 MCG Oral Tablet; 13. Nitroglycerin 0.4 MG Sublingual Tablet Sublingual; 14. RaNITidine HCl - 150 MG Oral Tablet; TAKE 1 TABLET BY MOUTH DAILY IN THE 15. Relpax 40 MG Oral Tablet; TAKE 1 TABLET AT ONSET OF MIGRAINE. MAY REPEAT IN 2 Allergies 1. Bactrim TABS 2. Neurontin TABS Past Medical/Surgical History Medical Problems: (1) Asthma (2) Bronchitis (3) Chest pain, rule out acute myocardial infarction (4) History of blood clots (5) Hypertension (6) Pneumonia (7) possible cva (8) TIA or cervicle radiculopathy Surgical Problems: (1) H/O: hysterectomy Allergies Coded Allergies: Sulfa Antibiotics (Verified Allergy, Unknown, Unknown, 11/22/15) Home Medications Scheduled Aspirin (Aspirin Ec), 81 MG PO QAM Atorvastatin (Lipitor), 20 MG PO QPM Buspirone HCl (Buspirone HCl), 5 MG PO HS Cyanocobalamin (Vitamin B-12), 1,000 MCG PO DAILY Escitalopram Oxalate (Escitalopram Oxalate), 10 MG PO DAILY Nitroglycerin (Nitrostat), 1 TAB SL UD Omeprazole (Prilosec), 20 MG PO BID Tizanidine (Zanaflex), 1 MG PO QAM Tizanidine Hcl (Zanaflex), 2 MG PO HS Topiramate (Topiramate), 100 MG PO BID Scheduled PRN Albuterol Hfa (Ventolin Hfa), 2 PUFFS INH QID PRN for SOB/Wheezing Eletriptan Hydrobromide (Relpax), 40 MG PO UD PRN for Migraine Meclizine HCl (Meclizine HCl), 25 MG PO TID PRN for Dizziness or Vertigo Naproxen (Naproxen), 500 MG PO BID PRN for Pain Ondansetron Hcl (Zofran), 4 MG PO Q8H PRN for Nausea Physical Examination Skin: warm/dry, no rash Eyes: normal inspection, EOMI, sclerae normal ENT: normal ENT inspection, pharynx normal Head: normocephalic, atraumatic Neck: supple, no adenopathy, trachea midline Respiratory/Chest: lungs clear, normal breath sounds, no respiratory distress Cardiovascular: regular rate, rhythm, no edema, no murmur Abdomen / GI: normal bowel sounds, non tender Back: normal inspection Extremities: normal inspection, normal range of motion Neurologic/Psych: no motor/sensory deficits, alert, normal reflexes, oriented x 3 Diagnosis Chronic cough with associated chest tightness ASA Classification: ASA Class II Plan of Treatment Bronchoscopy with conscious sedation a bronchial lavage
--- NOTE | 2017-07-31 10:30 | History & Physical Bridge Note ---
H&P Re-Evaluation Bridge Note: I have examined the patient, reviewed the History & Physical and in the interval since the performance of the History & Physical I have noted the following changes of clinical significance: No changes noted
--- NOTE | 2017-07-31 10:31 | Procedure Note ---
Pre-Mod Sedation Assessment General Date of Moderate Sedation: Jul 31, 2017. Vital Signs: Vital Signs Past 12 Hours Date Time Temp Pulse Resp B/P (MAP) Pulse Ox O2 Delivery O2 Flow Rate FiO2 07/31/17 10:07 37.1 66 66 131/85 96 Room Air 07/31/17 09:31 37.1 66 66 131/85 (100) 96 Room Air Review Cardiovascular: regular rate, rhythm, no edema, no gallop, no JVD, no murmur, normal peripheral pulses Abdomen: normal bowel sounds, non tender, soft, no organomegaly, no pulsatile mass Lungs: chest non-tender, lungs clear, normal breath sounds, no respiratory distress, no accessory muscle use Airway Class: II Pre-Sedation Airway Assessment Oral Cavity: WNL Short Thick Neck: No Hx of Sleep Apnea: No Smoking Status: Never Smoker Notes The planned sedation has been discussed with the patient and consent obtained. I have identified the patient, determined the appropriateness of sedation and have assessed the patient immediately prior to the procedure. All medicine(s) and interventions are by my order.
--- NOTE | 2017-07-31 11:20 | Procedure Note ---
Post-Moderate Sedation Plan General Date of Moderate Sedation Jul 31, 2017. Vital Signs: Vital Signs Past 12 Hours Date Time Temp Pulse Resp B/P (MAP) Pulse Ox O2 Delivery O2 Flow Rate FiO2 07/31/17 11:10 77 16 129/93 94 Nasal Cannula 4.0 07/31/17 11:05 77 16 115/80 92 Mask 15.0 07/31/17 11:00 77 16 115/80 92 Mask 15.0 07/31/17 10:55 73 16 127/79 93 Mask 15.0 07/31/17 10:50 76 16 114/85 89 Mask 15.0 07/31/17 10:45 67 16 122/87 98 Mask 8.0 07/31/17 10:40 72 20 139/94 100 Mask 8.0 07/31/17 10:35 60 20 129/90 100 Mask 8.0 07/31/17 10:30 62 20 143/93 99 Room Air 07/31/17 10:07 37.1 66 66 131/85 96 Room Air 07/31/17 09:31 37.1 66 66 131/85 (100) 96 Room Air Review - Discharge Plan Post Moderate Sedation Plan: On clinical assessment, the patient appears to have tolerated the conscious sedation without complications. Patient is recovering as anticipated. Patient will continue to be monitored by nursing and may be discharged when conscious sedation discharge criteria are met.
--- NOTE | 2017-07-31 11:22 | Bronchoscopy Procedure Note ---
Bronchoscopy Procedure Note Procedure: Bronchoscopy, conscious sedation, bronchial lavage Consent: Obtained through the patient placed into the chart Pre-procedural diagnosis: Chronic cough Post-procedural diagnosis: Chronic cough Start time: 1045 End time: 1056 Total time: 11 minutes Analgesia: 2% liquid lidocaine: Via nebulizer 4% gel lidocaine: Via right naris 2% liquid lidocaine: Via bronchoscopy Sedation: Versed IV: 3mg Fentanyl IV: 75 g Procedure: The Olympus video bronchoscope was used for this procedure and passed down through the right naris Right naris/posterior naris/posterior oropharynx: Anatomically within normal limits, there was notable diffuse erythema the right naris as well as the posterior nasal/pharyngeal ram Glottis: Anatomically within normal limits, notable erythema around the glottic region suggesting possible postnasal drip or even GERD Vocal cords: Proper abduction and abduction, anatomically within normal limits Subglottis/trachea/Arabella: Anatomically within normal limits Right bronchial tree: Right mainstem bronchus: Anatomically within normal limits Right upper lobe: Anatomically within normal limits Bronchus intermedius: Anatomically within normal limits Right middle lobe: Anatomically within normal limits Right lower lobe: Anatomically within normal limits Findings: No significant findings noted Left bronchial tree: Left mainstem bronchus: Anatomically within normal limits Left upper lobe: Anatomically within normal limits Lingula: Anatomically within normal limits Left lower lobe: Anatomically within normal limits Findings: No significant findings noted Bronchial alveolar lavage: Lingula EBL: None Complications: None Follow-up: In the [facility]
--- NOTE | 2017-07-31 11:25 | Discharge Instructions ---
Discharge Instructions Date of Service Jul 31, 2017. Admission Reason for Admission: Chronic Cough; Bronchitis Discharge Discharge Diagnosis / Problem: Chronic cough Discharge Goals Goal(s): Diagnostic testing Activity Recommendations Activity Limitations: resume your previous activity . Instructions / Follow-Up Instructions / Follow-Up Follow-up at the [facility] Current Hospital Diet Patient's current hospital diet: Discharge Diet Recommended Diet: Regular Diet Procedures Procedures Performed: Bronchoscopy, bronchial lavage and conscious sedation Pending Studies Studies pending at discharge: no Laboratory Results Hemoglobin A1c Test 06/29/17 06:48 Range/Units Estimated Average Glucose 120 mg/dl Hemoglobin A1c 5.8 H 4.5-5.6 % Medical Emergencies . Who to Call and When: Medical Emergencies: If at any time you feel your situation is an emergency, please call 911 immediately. . Non-Emergent Contact Non-Emergency issues call your: Application Manager . . "Provider Documentation" section prepared by Stephon Frausto. . VTE Core Measure Inpt VTE Proph given/why not?: Treatment not indicated
== END | disposition home or self-care (01) ==
LOC: C.ACU 07:53
PROVIDERS: ATTEND Internal Medicine Critical Care Medicine
DX: J40 Bronchitis, not specified as acute or chronic (principal); F32.9 Major depressive disorder, single episode, unspecified; I10 Essential (primary) hypertension; E78.5 Hyperlipidemia, unspecified; G62.9 Polyneuropathy, unspecified; J45.909 Unspecified asthma, uncomplicated; Z79.82 Long term (current) use of aspirin; Z86.73 Personal history of transient ischemic attack (TIA), and cerebral infarction without residual deficits; Z90.710 Acquired absence of both cervix and uterus; Z87.01 Personal history of pneumonia (recurrent); Z83.3 Family history of diabetes mellitus; Z82.49 Family history of ischemic heart disease and other diseases of the circulatory system

== ENCOUNTER → 2018-01-15 | Outpatient (CLI) | payer OTHER ==
[~2018-01-15] MED LIST changes: -FENTANYL CITRATE 100 MCG 2 ML CARP IV ONE; -FENTANYL CITRATE INJ 50 MCG/1 ML 2 ML VIAL IV ONE; -MIDAZOLAM HCL 5 MG/ML 1 ML VIAL IV ONE; -NURSING VERBAL MED ORDER ONE
[2018-01-15 16:38] LABS: BASO % 0.7 %; BASO ABS # 0.06 K/uL (0-0.2); EOS % 1.3 %; EOS ABS # 0.11 K/uL (0-0.5); HEMATOCRIT 41.8 % (37-47); HEMOGLOBIN 13.9 g/dL (12.0-16.0); IG# 0.01 K/uL (0.00-0.02); LYMPH % 33.6 %; MEAN CELL VOLUME 88.9 fL (80-100); MEAN CORPUSCULAR HEMOGLOBIN 29.6 pg (25-34); MEAN CORPUSCULAR HGB CONC 33.3 g/dl (32-36); MEAN PLATELET VOLUME 10.6 fL (7.4-10.4); MONO % 5.2 %; MONO ABS # 0.45 K/uL (0.11-0.59); NEUT % 59.1 %; NEUT ABS # 5.11 K/uL (1.4-6.5); PLATELET COUNT 224 K/uL (130-400); RED CELL DISTRIBUTION WIDTH CV 14.2 % (11.5-14.5); RED CELL DISTRIBUTION WIDTH SD 46.8 fL (36.4-46.3); WHITE BLOOD COUNT 8.64 K/uL (4.8-10.8)
[2018-01-15 16:46] LABS: PTT PATIENT 26.3 SECONDS (21.0-31.0)
[2018-01-15 17:06] LABS: BLOOD UREA NITROGEN 14 mg/dl (7-18); CARBON DIOXIDE 25 mmol/L (21-32); CREATININE 0.85 mg/dl (0.60-1.20); GLUCOSE 90 mg/dl (70-99); POTASSIUM 3.7 mmol/L (3.5-5.1); SODIUM 141 mmol/L (136-145)
[2018-01-15 17:07] LABS: CALCIUM 9.6 mg/dl (8.5-10.1)
== END | disposition home or self-care (01) ==
LOC: C.LAB1850 15:27
PROVIDERS: ATTEND Physician Assistant Medical
DX: R07.9 Chest pain, unspecified (principal)